=== PATIENT | female | born 1940 | race Caucasian/White ===

== ENCOUNTER 2016-11-05 17:55 | Emergency (ER) | payer MEDICARE ==
[~2016-11-05] VITALS: Ht 177.8 cm; Wt 109.1 kg
[2016-11-05 17:58] VITALS: BP 183/114; PULSE 86; RESP 20; O2SAT 100
--- NOTE | 2016-11-05 18:15 | ED.REPORT ---
HPI-Trauma Minor / Fall Date of Service November 05, 2016 ED Provider: Flako Dawn MD An 79 year old female with a history of dementia and no current blood thinner use is brought to the ED via EMS due to an unwitnessed fall. The pt fell out of bed and was down for up to 30 minutes. Per pt's , the pt was sleeping normally at 17:00. When he checked on her again thirty minutes later, she had fallen on the floor with her head between the bed and a dresser. When the pt was found, she was responsive and knew who her was. She complained of neck pain at that time, though she denies neck pain in the ED. She is complaining of a headache. The pt's family does not believe that she is currently at baseline. Nursing Notes Stated Complaint: HIT HEAD/FALL Chief Complaint: Multiple Trauma/Fall Nursing Notes Reviewed: Yes Allergies: Coded Allergies: No Known Allergies (Unverified , 11/05/16) General Time Seen by MD: 18:15 Chief Complaint Fall Hx Obtained From: Patient, Spouse, Daughter, EMS Arrived By: Ambulance Onset Occurred: 1 - 4 hours ago Recent Healthcare: No recent hospitalization Risk Factors Head CT Imaging Non Contrast CT Indicated For: >/= 60 yrs AgeNo Vomiting, No WITH Loss of Conciousness RF Statements: Risk factors reviewed Past Medical History Past Medical History dementia [facility] Denies: Hypertension Past Surgical History none reported Smoking History Unknown if Ever Smoker Social History Other Social History: Good social support, Review of Systems Review of Systems Note: ROS limited by pt mental status altered LOC per family Respiratory: Denies: Shortness of breath Musculoskeletal: Denies: Neck pain (initially reported, denied in ED) Neurologic: Reports: Headache Complete sys rev & neg: except as marked. Physical Exam Initial Vital Signs Vital Signs (First) Date Time Temp Pulse Resp B/P Pulse Ox O2 Delivery O2 Flow Rate FiO2 11/05/16 17:58 37.3 86 20 183/114 100 Room Air Initial VS: Reviewed General/Constitutional: Awake, Alert Alertness: Positive: Confused Neck: Atraumatic, Supple, Full range of motion Head / Eyes: Normocephalic, PERRL, EOMI bruising to lower lip ENT: Atraumatic, Airway patent, Mucous membranes moist Respiratory / Chest: Atraumatic, Breath sounds NL, Breath sounds = bilat, No respiratory distress Cardiovascular: Heart rate NL, Regular rhythm 3/6 systolic murmur, upper left systolic border Abdomen: Atraumatic, Soft, Non-tender Back: Atraumatic, Full range of motion spine nontender Upper Extremity / MS: Atraumatic, Full range of motion Lower Extremity / Pelvis / MS: Atraumatic, Full range of motion Skin: Atraumatic, Color NL, No rash, Warm, Dry Neurologic: No motor deficits, No sensory deficits Psychiatric: Affect NL, Mood NL Interpretation & Diagnostics Lab Results Interpretation Result Diagram: 11/05/16202411/05/162024 Test 11/05/16 20:25 11/05/16 22:35 White Blood Count 7.9th/mm3 (3.8-10.1) Red Blood Count 3.29mil/mm3 (3.90-5.20) Hemoglobin 9.9g/dL (12.0-15.6) Hematocrit 30.0% (35.0-46.0) Mean Corpuscular Volume 91.2fL (81-100) Mean Corpuscular Hemoglobin 30.1pg (27.0-35.0) Mean Corpuscular Hemoglobin Concent 33.0% (32.0-37.0) Red Cell Distribution Width 12.3% (12.3-15.4) Platelet Count 203bil/L (150-400) Neutrophils (%) (Auto) 80.9% (40-74) Lymphocytes (%) (Auto) 11.1% (14-46) Monocytes (%) (Auto) 7.1% (4-12) Eosinophils (%) (Auto) 0.3% (0-5) Basophils (%) (Auto) 0.3% (0-3) Sodium Level 146mEq/L (134-144) Potassium Level 3.8mEq/L (3.5-5.2) Chloride Level 109mEq/L (97-108) Carbon Dioxide Level 22mmol/L (18-29) Blood Urea Nitrogen 17mg/dL (8-27) Creatinine 1.32mg/dL (0.57-1.00) Estimat Glomerular Filtration Rate 56mL/min (>59) Glucose Level 120mg/dL (60-99) Calcium Level 8.8mg/dL (8.5-10.1) Total Bilirubin 0.4mg/dL (0.0-1.2) Aspartate Amino Transf (AST/SGOT) 33U/L (0-50) Alanine Aminotransferase (ALT/SGPT) 14U/L (0-32) Alkaline Phosphatase 82U/L (25-165) Total Protein 6.3g/dL (6.4-8.4) Albumin 3.5g/dL (3.4-5.0) Urine Color Yellow (YELLOW) Urine Appearance Clear (CLEAR,HAZY) Urine pH 5.5 (5.0-8.0) Urine Specific Cisco 1.015 (1.003-1.035) Urine Protein 30mg/dL (NEG,TRACE) Urine Glucose (UA) Negativemg/dL (NEGATIVE) Urine Ketones Negativemg/dL (NEGATIVE) Urine Occult Blood Moderate (NEGATIVE) Urine Nitrite Negative (NEGATIVE) Urine Bilirubin Negative (NEGATIVE) Urine Urobilinogen Normalmg/dL (NORMAL) Urine Leukocyte Esterase Negative (NEGATIVE) Urine RBC 0-2/hpf (0-2) Urine WBC 0-5/hpf (0-5) Urine Epithelial Cells Few/hpf (NONE-MOD) Urine Crystals None seen (NONE SEEN) Urine Bacteria None/hpf (NONE-FEW) Urine Hyaline Casts None/lpf (NONE) Urine Granular Casts None seen (NONE SEEN) Urine Waxy Casts None seen (NONE SEEN) Urine Red Blood Cell Casts None seen (NONE SEEN) Urine White Blood Cell Casts None seen (NONE SEEN) Urine Mucus None seen (None Seen) Urine Trichomonas None seen (NONE SEEN) Urine Yeast None (NONE SEEN) Urine Culture Reflexed Not indicated CT Head Interpretation IMPRESSION: 1. No acute intracranial abnormality. 2. Multifocal regions of bifrontal and right temporal parietal low density, consistent with small vessel ischemic disease versus subacute or chronic infarcts. 3. Anterior falcine meningioma. Dictated by: Nirmal Chu M.D. on 11/05/2016 at 18:56 Approved by: Nirmal Chu M.D. on 11/05/2016 at 18:59 Interpretation / Wet Read by: Interpret - Radiologist CT C-Spine Interpretation IMPRESSION: No fracture. Dictated by: Nirmal Chu M.D. on 11/05/2016 at 18:59 Approved by: Nirmal Chu M.D. on 11/05/2016 at 19:00 Interpretation / Wet Read by: Interpret - Radiologist Re-Eval/Medical Decision Source of Hx: [place] Barrel Ribs Re-Evaluation/Progress #1: Time of Eval: 19:52 Patient Status: Condition improved Re-Evaluation/Progress Note: Pt rechecked with family present. Additional history is obtained. Re-Evaluation/Progress #2: Time of Eval: 23:50 Patient Status: Condition improved Re-Evaluation/Progress Note: Pt rechecked, who is sleeping but arousable. The diagnosis and plan for discharge are discussed. The pt understands and agrees with the plan. All questions are addressed at this time. Counseled Regarding: Diagnosis, Lab results, Need for follow-up, When/why to return to ED Discharge & Departure Impression: Primary Impression: Fall from ground level Disposition: Home Discharge Condition All VS Reviewed: Yes Condition: Stable Additional Instructions: Emergency Department evaluation included interview, examination labs CT brain and cervical spine. No acute injury is found. Evaluation for infection or other cause for the fall was reassuring. Continue previous home care. Follow up with primary care in about 1 week for recheck. Return to emergency department for fever or shortness of breath or chest pain. Referrals: Magdalena Macedo MD Attestation Portions of this note were transcribed by José Randle. I, Dr. Dawn personally performed the history, physical exam and medical decision-making; I reviewed and confirmed the accuracy of the information in the transcribed note. Signed by: Joseluis Kumar, 11/05/16 and [id number]. copies to: Magdalena Macedo MD, Donald L MD November 05, 2016 18:15 JOSÉ RANDLE November 05, 2016 18:24
--- NOTE | 2016-11-05 19:00 | DRSVH ---
PROCEDURE: CT BRAIN WITHOUT CONTRAST ([id number]) INDICATIONS: fall head injury TECHNIQUE: Noncontrast 4.5 mm thick angled axial sections acquired from the foramen magnum to the vertex, with c oronal reformats. COMPARISON: None. FINDINGS: Image quality: Degraded by motion artifact CSF spaces: Basal cisterns are patent. No extra-axial fluid collections. The ventricles are symmet celestina in size and shape. Brain: No intracranial bleeds. There is a 13 mm diameter calcific focus along the anterior fault. La rge regions of bifrontal and right temporal parietal low density are present within the cortex, subco rtical, and periventricular white matter. There is cerebral volume loss for age, with resultant ventr icular and sulcal prominence. There are periventricular and deep white matter chronic small vessel i schemic changes. There is intracranial internal carotid artery atherosclerosis. Skull and face: Calvarium and visualized facial bones appear intact, without suspicious lesions. Sinuses: Visualized sinuses and mastoids are clear. IMPRESSION: 1. No acute intracranial abnormality. 2. Multifocal regions of bifrontal and right temporal parietal low density, consistent with small ves kumar ischemic disease versus subacute or chronic infarcts. 3. Anterior falcine meningioma. Dictated by: Nirmal Chu M.D. on 11/05/2016 at 18:56 Approved by: Nirmal Chu M.D. on 11/05/2016 at 18:59
--- NOTE | 2016-11-05 19:02 | DRSVH ---
PROCEDURE: CT CERVICAL SPINE WITHOUT CONTRAST ([id number]) INDICATIONS: fall head injury TECHNIQUE: Noncontrast 3 mm thick sections acquired from the skull base to the T4 level. Sagittal and coronal r eformats were then constructed. For radiation dose reduction, the following was used: automated exp osure control, adjustment of mA and/or kV according to patient size. COMPARISON: None. FINDINGS: Image quality: Excellent. Bones: No fractures or dislocations. Visualized superior ribs are intact. Soft tissues: Prevertebral soft tissues are normal in thickness. No paravertebral hematomas. No ap ical pneumothoraces. IMPRESSION: No fracture. Dictated by: Nirmal Chu M.D. on 11/05/2016 at 18:59 Approved by: Nirmal Chu M.D. on 11/05/2016 at 19:00
[2016-11-05 20:10] VITALS: BP 149/56; PULSE 78; RESP 20; O2SAT 98
[2016-11-05 20:35] LABS: BASOPHILS % (AUTO) 0.3 % (0-3); EOSINOPHILS % (AUTO) 0.3 % (0-5); MONOCYTES % (AUTO) 7.1 % (4-12); Mean Corpuscular Hemoglobin 30.1 pg (27.0-35.0); Mean Corpuscular Volume 91.2 fL (81-100); NEUTROPHILS % (AUTO) 80.9 % (40-74); Platelet Count 203 bil/L (150-400)
[2016-11-05 22:24] VITALS: BP 205/56; PULSE 98; RESP 20; O2SAT 98
[2016-11-05 23:41] LABS: APPEARANCE,URINE CLEAR (CLEAR,HAZY); COLOR,URINE YELLOW (YELLOW); OCCULT BLOOD,URINE MODERATE (NEGATIVE); PH,URINE 5.5 (5.0-8.0); UROBILINOGEN,URINE NORMAL (NORMAL)
[2016-11-06 00:14] VITALS: BP 143/41; PULSE 74; O2SAT 98
[2016-11-07] MEDS ORDERED: HYDR25TA4 PO (16:35)
[2016-11-07] MEDS ORDERED: METO25TA99 PO (16:35)
[2016-11-07] MEDS ORDERED: ATOR80TA PO (16:35)
[2016-11-07] MEDS ORDERED: OLME40TA3 PO (16:35)
[2016-11-07] MEDS ORDERED: DIPH25CA6 PO (16:35)
[2016-11-07] MEDS ORDERED: FLUT16SP NS (16:35)
[2016-11-07] MEDS ORDERED: FLUO40CA PO (16:35)
[2016-11-07] MEDS ORDERED: LEVO100T6 PO (16:35)
== END 2016-11-06 00:15 | disposition home or self-care (01) ==
LOC: SED 17:55
DX: R51 Headache (principal); M54.2 Cervicalgia; W06.XXXA Fall from bed, initial encounter; Y93.84 Activity, sleeping; Y92.013 Bedroom of single-family (private) house as the place of occurrence of the external cause; Y99.8 Other external cause status

== ENCOUNTER 2016-11-06 14:20 | Inpatient (IN) | payer MEDICARE ==
[~2016-11-06] VITALS: Ht 172.7 cm; Wt 106.3 kg
[2016-11-06 14:36] VITALS: BP 149/101; PULSE 66; RESP 21; O2SAT 98
--- NOTE | 2016-11-06 15:05 | ED.REPORT ---
HPI-Altered Mental Status Date of Service November 06, 2016 ED Provider: Dr. Peñaloza Patient is a 76 y/o female with a history of dementia, hypertension, and coronary artery disease, who was brought to the emergency department by EMS for altered mental state. Per her family, the patient fell out of the bed yesterday and was pinned between her bed and night stand. She was seen in the emergency department yesterday after the fall, had a negative head and neck CT, and was discharged home. Today her mental status has drastically declined. She is typically very verbal and talkative but has been unable to answer questions appropriately or recognize the people around her. She denies chest pain, abdominal pain, extremity pain or shortness of breath. Family denies history of stroke. Nursing Notes Stated Complaint: ALTERED MENTAL STATUS Chief Complaint: Neuro Symptoms/ Deficits Nursing Notes Reviewed: Yes Allergies: Coded Allergies: Penicillins (Verified Allergy, Severe, Anaphylaxis, 11/06/16) General Time Seen by MD: 15:04 Chief Complaint Other (Altered mental state) Hx Obtained From: Patient (limited), Daughter, Other family... Arrived By: Ambulance Sudden in Onset?: Yes Onset Occurred: 1 - 4 hours ago Symptom Duration: Since onset Progression since Onset: Constant Recent Healthcare: No recent hospitalization, Recent doctor visit Past Medical History Past Medical History Dementia Coronary artery disease Reports: Hypertension Reports: Depression Past Surgical History none reported Family History Noncontributory Smoking History Unknown if Ever Smoker Social History Alcohol Use: Denies alcohol use Other Social History: Good social support, , Local resident Ambulatory Status Independent Review of Systems Review of Systems Note: History is limited due to patients altered mental state Unable to Obtain ROS Patient condition (limited) Respiratory: Denies: Shortness of breath Cardiovascular: Denies: Chest pain GI: Denies: Abdominal pain Neurologic: Reports: Confusion Psychiatric: Reports: Change mental status Musculoskeletal: Denies: Extremity pain Physical Exam Initial Vital Signs Vital Signs (First) Date Time Temp Pulse Resp B/P Pulse Ox O2 Delivery O2 Flow Rate FiO2 11/06/16 14:36 36.4 66 21 149/101 98 Room Air Initial VS: Reviewed, Vital signs abnormal ENT: Mucous membranes moist, Conjunctiva normal, No scleral icterus Abdomen / GI: Soft, Non-tender, No guarding, No rebound, No distention Extremities: Vascular intact, Neuro intact Skin: Warm, Dry General/Constitutional: Awake, Not toxic appearing Alertness: Positive: Confused Head / Eyes: Atraumatic, Normocephalic, PERRL, EOMI Neck: Atraumatic, Supple, No swelling, Non-tender Respiratory / Chest: Atraumatic, Breath sounds NL, Breath sounds = bilat, No respiratory distress, No rales, No rhonchi, No wheezing, No retractions Cardiovascular: Heart rate NL, Regular rhythm, Heart sounds NL, No gallop, No murmurs, No rubs Neurologic: Speech NL Mental Status: Positive: Confused GCS score of 13 due to eye opening Was able to answer questions with confusion. Lower Extremity / Pelvis / MS: Full range of motion, Neurologic intact, Vascular intact Left Leg / Calf: Positive: Swelling present... (Mild), Tenderness present... ( Mild) Interpretation & Diagnostics Lab Results Interpretation Result Diagram: 11/06/16 1538 11/06/16 1538 Test 11/06/16 15:38 White Blood Count 5.4th/mm3 (3.8-10.1) Red Blood Count 3.37mil/mm3 (3.90-5.20) Hemoglobin 10.1g/dL (12.0-15.6) Hematocrit 31.0% (35.0-46.0) Mean Corpuscular Volume 92.0fL (81-100) Mean Corpuscular Hemoglobin 30.0pg (27.0-35.0) Mean Corpuscular Hemoglobin Concent 32.6% (32.0-37.0) Red Cell Distribution Width 12.7% (12.3-15.4) Platelet Count 202bil/L (150-400) Neutrophils (%) (Auto) 49.0% (40-74) Lymphocytes (%) (Auto) 36.8% (14-46) Monocytes (%) (Auto) 10.5% (4-12) Eosinophils (%) (Auto) 3.1% (0-5) Basophils (%) (Auto) 0.6% (0-3) Prothrombin Time 10.6sec (8.1-12.5) Prothromb Time International Ratio 0.99ratio Sodium Level 141mEq/L (134-144) Potassium Level 3.8mEq/L (3.5-5.2) Chloride Level 106mEq/L (97-108) Carbon Dioxide Level 23mmol/L (18-29) Blood Urea Nitrogen 15mg/dL (8-27) Creatinine 1.37mg/dL (0.57-1.00) Estimat Glomerular Filtration Rate 54mL/min (>59) Glucose Level 102mg/dL (60-99) Lactic Acid Level 0.9mmol/L (0.4-2.0) Calcium Level 9.1mg/dL (8.5-10.1) Magnesium Level 1.9mg/dL (1.6-2.6) Total Bilirubin 0.6mg/dL (0.0-1.2) Aspartate Amino Transf (AST/SGOT) 47U/L (0-50) Alanine Aminotransferase (ALT/SGPT) 16U/L (0-32) Alkaline Phosphatase 80U/L (25-165) Ammonia 40ug/dL (18-53) Total Protein 6.3g/dL (6.4-8.4) Albumin 3.5g/dL (3.4-5.0) Triglycerides Level 91mg/dL (0-149) Cholesterol Level 151mg/dL (100-199) LDL Cholesterol, Calculated 78.800mg/dL (0-99) VLDL Cholesterol 18.200mg/dL HDL Cholesterol 54mg/dL (>39) Cholesterol/HDL Ratio 2.80 (0.0-4.4) Thyroid Stimulating Hormone (TSH) 3.850uIU/mL (0.450-4.500) CT Head Interpretation IMPRESSION: Diffuse white matter edema unchanged since the previous day CT scan. Dictated by: Michael Gonzalez M.D. on 11/06/2016 at 14:52 Study: Head CT no contrast Interpretation / Wet Read by: Interpret - Radiologist US Focused Lower Ext Venous US VENOUS LEG DUPLEX UNILATERAL, LEFT IMPRESSION: No evidence of deep venous thrombosis. Dictated by: Dedrick Handy M.D. on 11/06/2016 at 17:40 Exam Performed by: Radiologist Re-Eval/Medical Decision Med Decision/Clinical Course The patient presents altered, she is not clearing, she has been this way since she was found on the ground yesterday. Her CT does have some abnormalities one of which is subacute stroke. Her symptoms may be related to concussion or this abnormality. Given she is not clearing so she should be admitted for further evaluation such as an MRI. On exam she is also found to have a right lower extremity cellulitis however see does not have any signs of sepsis therefore do not think this is concerning to her mental status. Source of Hx: Old records Re-Evaluation/Progress : Time of Eval: 17:56 Re-Evaluation/Progress Note: Discussed patients condition with the family. Informed them of the need to admit. They understand and agree with with the plan. All questions answered at this time. Consultation : Referral / Consult Name: Evelia Goldman MD Consulted With: Hospitalist Call Returned at: 17:47 Branch Service Leader: Will see patient, Agrees with eval, Accepts admit Note: Discussed patients condition. Agrees to admit. Counseled Regarding: Diagnosis, Lab results, Need for admission Patient Discharge & Departure Impression: Primary Impression: Altered mental status Altered mental status type: unspecified Qualified Code: R41.82 - Altered mental status, unspecified Additional Impression: Cellulitis Site of cellulitis: unspecified site Qualified Code: L03.90 - Cellulitis, unspecified Disposition: ADMITTED TO HOSPITAL Discharge Condition All VS Reviewed: Yes Condition: Stable Referrals: Magdalena Macedo MD (PCP) Scribe Attestation Portions of this note were transcribed by Glen Acuna and Marcy Gomez. I, Dr. Peñaloza personally performed the history, physical exam and medical decision- making; I reviewed and confirmed the accuracy of the information in the transcribed note. Signed by: Glen Gomez, Scribes, 11/06/16 - 2004. copies to: Magdalena Macedo MD, Jena M MD November 06, 2016 15:05 Glen Acuna November 06, 2016 15:15 Marcy Gomez November 06, 2016 21:18
--- NOTE | 2016-11-06 15:09 | DRSVH ---
PROCEDURE: CT BRAIN WITHOUT CONTRAST ([id number]) INDICATIONS: confusion, recent fall TECHNIQUE: Noncontrast 4.5 mm thick angled axial sections acquired from the foramen magnum to the vertex, with c oronal reformats. COMPARISON: [facility], CT, CT BRAIN WO CON, 11/05/2016, 18:26. FINDINGS: Image quality: Excellent. CSF spaces: Basal cisterns are patent. No extra-axial fluid collections. The ventricles are symmet celestina in size and shape. Brain: No intracranial bleeds. There is fairly diffuse cerebral white matter edema bilaterally witho ut shift of midline. No evidence for any herniation is seen.. There is cerebral volume loss for age, with resultant ventricular and sulcal prominence. There are periventricular and deep white matter c hronic small vessel ischemic changes. There is intracranial internal carotid artery atherosclerosis. Skull and face: Calvarium and visualized facial bones appear intact, without suspicious lesions. Sinuses: Visualized sinuses and mastoids are clear. IMPRESSION: Diffuse white matter edema unchanged since the previous day CT scan. Dictated by: Michael Gonzalez M.D. on 11/06/2016 at 14:52 Approved by: Michael Gonzalez M.D. on 11/06/2016 at 15:08
[2016-11-06] MEDS ORDERED: 0.9% Sodium Chloride 500 ML IV ONE (15:15)
[2016-11-06 15:49] LABS: BASOPHILS % (AUTO) 0.6 % (0-3); EOSINOPHILS % (AUTO) 3.1 % (0-5); MONOCYTES % (AUTO) 10.5 % (4-12); Platelet Count 202 bil/L (150-400)
[2016-11-06 16:03] LABS: INR 0.99 ratio
[2016-11-06 16:11] LABS: Magnesium 1.9 mg/dL (1.6-2.6)
[2016-11-06 16:37] VITALS: BP 159/57; PULSE 78; RESP 17; O2SAT 98
[2016-11-06] MEDS ORDERED: CeFAZolin Inj 3 GM in Dextrose 5% Minibag Plus 50 ML IV ONE (17:30)
--- NOTE | 2016-11-06 17:42 | DRSVH ---
PROCEDURE: US VEINOUS LEG DUPLEX UNILATERAL, LEFT INDICATIONS: swelling LEFT LEG TECHNIQUE: Real-time imaging, as well as color and pulse Doppler interrogation, were performed of the lower extr emity deep veins from the inguinal ligament to the popliteal fossa. COMPARISON: None. FINDINGS: The deep veins are normally compressible, and free of intraluminal thrombus. Color and pu lse Doppler demonstrate normal phasic intraluminal flow. There is normal augmentation response to di stal compression maneuver. IMPRESSION: No evidence of deep venous thrombosis. Dictated by: Dedrick Handy M.D. on 11/06/2016 at 17:40 Approved by: Dedrick Handy M.D. on 11/06/2016 at 17:41
[2016-11-06 19:07] VITALS: PULSE 64
--- NOTE | 2016-11-06 19:15 | PCM.HPMED ---
Subjective Date of Service November 06, 2016 Primary Provider: Admitting Physician: Primary Care Physician: Magdalena Macedo MD Attending Physician: Chief Complaint: Somnolence after fall History of Present Illness: 76-year-old female with mild dementia, hypertension, hyperthyroidism, remote hx of KBG01qan ago, community dwelling functional lady initially presented yesterday after being found down by her . Per pt's , the pt was sleeping normally at 17:00. When he checked on her again thirty minutes later, she had fallen on the floor with her head between the bed and a dresser. When the pt was found, she was responsive and knew who her was. She complained of neck pain at that time, estimated last normal was 30min earlier, pt had CTH, cervical spine CT, which didn't show any acute findings. As per record, pt was communicative upon d/c. Since patient left around [place], daughter stayed with the patient, patient had been very somnolent, responding, barely open her eyes. Daughter called and primary doctor, asked to come to ED again. In ED, VS 149/101, 66, 21, afebrile, 98% on RA, repeat CTH unchanged, venous duplex neg. received 500cc bolus During interview, pt already made improvement per family, able to communicate, mildly drowsy and slow to response, denied any pain, BENDER, dizziness, focal weakness, knows she is the hospital but doesn't know the reason, recognized all of the family members. Review of Systems: Pertinent positives as noted in history of present illness. All other systems were reviewed and are negative Allergies Coded Allergies: Penicillins (Verified Allergy, Severe, Anaphylaxis, 11/06/16) Home Medications Unable to recall PMH As described above Surgical History Cholecystectomy Family History No history of CAD Social History Hx Alcohol Use: No Hx Substance Use: No Hx Tobacco Use: No Smoking Status: Unknown if Ever Smoker Additional Information Lives with in private home Exam Vital Signs Vital Sign - Last Date Time Temp Pulse Resp B/P Pulse Ox O2 Delivery O2 Flow Rate FiO2 11/06/16 16:37 36.8 78 17 159/57 98 Room Air Exam NAD, comfortably laying down on the bed no JVD, MMM, no LAD RRR, Gr2 ejection murmur on RUSB CTAB, no w,c S,ND,NT,normoactive BS+ warm, no edema, pulses 2/2 Neuro:speech coherent, fluent, AAOx2, slow response PERRLA, unable to assess ocular movement, symmetric face, no uvulae tongue deviation, able shrug shoulders equally able rotate neck equally on both sides motor 5/5 throughout, sensory intact to dull touch Lab and Diagnostics Result Diagram: 11/06/16 1538 11/06/16 1538 X-Rays, CTs and MRIs PROCEDURE: CT BRAIN WITHOUT CONTRAST ([id number]) INDICATIONS: confusion, recent fall TECHNIQUE: Noncontrast 4.5 mm thick angled axial sections acquired from the foramen magnum to the vertex, with coronal reformats. COMPARISON: [facility], CT, CT BRAIN WO CON, 11/05/2016, 18:26. FINDINGS: Image quality: Excellent. CSF spaces: Basal cisterns are patent. No extra-axial fluid collections. The ventricles are symmetric in size and shape. Brain: No intracranial bleeds. There is fairly diffuse cerebral white matter edema bilaterally without shift of midline. No evidence for any herniation is seen.. There is cerebral volume loss for age, with resultant ventricular and sulcal prominence. There are periventricular and deep white matter chronic small vessel ischemic changes. There is intracranial internal carotid artery atherosclerosis. Skull and face: Calvarium and visualized facial bones appear intact, without suspicious lesions. Sinuses: Visualized sinuses and mastoids are clear. IMPRESSION: Diffuse white matter edema unchanged since the previous day CT scan. Dictated by: Michael Gonzalez M.D. on 11/06/2016 at 14:52 Approved by: Michael Gonzalez M.D. on 11/06/2016 at 15:08 Assessment & Plan acute, active unwitnessed fall, POA, 2days, possible cardia episode-valvular dz given murmur, ventricular arrhythmias vs transient concussion after fall, possible TIA -MRI stroke protocol -TTE which was already scheduled in the clinic -will verify further medical hx with PCP [phone] tomorrow -EKG, telemetry -PT/OT, s/s eval, dysphagis diet for now, advance as tolerate -gentle hydration 100cc/hr by tomorrow chronic, stable HTN, hold BP meds for now hyperthyroidism, resume home meds mild dementia, functional at baseline, likely to return home dispo:Patient will be admitted with inpatient status with expectation of inpatient therapy for more than 2 midnights diet:mechanical dysphagia dvt ppx:LMWH Full Code Time spent 65 minutes Evelia Goldman MD November 06, 2016 17:49
[2016-11-06 19:27] VITALS: BP 211/71; PULSE 64; RESP 18; O2SAT 97
[2016-11-06 21:33] VITALS: BP 203/76
[2016-11-06] MEDS: 0.9% Sodium Chloride 1,000 ML IV SCH (21:48)
[2016-11-07 00:52] VITALS: BP 160/87; PULSE 74; RESP 18; O2SAT 98
[2016-11-07 03:33] LABS: APPEARANCE,URINE CLEAR (CLEAR,HAZY); COLOR,URINE YELLOW (YELLOW); OCCULT BLOOD,URINE TRACE (NEGATIVE); UROBILINOGEN,URINE NORMAL (NORMAL)
[2016-11-07 05:02] VITALS: BP 162/72; PULSE 72; RESP 18; O2SAT 97
[2016-11-07 07:42] LABS: BASOPHILS % (AUTO) 0.4 % (0-3); EOSINOPHILS % (AUTO) 3.8 % (0-5); MONOCYTES % (AUTO) 10.6 % (4-12); Mean Corpuscular Hemoglobin 29.5 pg (27.0-35.0); NEUTROPHILS % (AUTO) 59.4 % (40-74); Platelet Count 198 bil/L (150-400)
[2016-11-07 08:07] LABS: Magnesium 1.8 mg/dL (1.6-2.6); Phosphorus 3.8 mg/dL (2.5-4.9)
[2016-11-07] MEDS: 0.9% Sodium Chloride 1,000 ML IV SCH ×2 (09:28→15:15)
[2016-11-07 10:09] VITALS: BP 145/78; PULSE 74; RESP 18; O2SAT 99
[2016-11-07 11:06] VITALS: PULSE 79
--- NOTE | 2016-11-07 11:21 | PCM.PNMED ---
Subjective Date of Service November 07, 2016 Subjective pt was AAOX3 overnight, doesn't recall that she was found down prior to hospitalization. pleasant, calm Exam Vital Signs Vital Sign - Last Date Time Temp Pulse Resp B/P Pulse Ox O2 Delivery O2 Flow Rate FiO2 11/07/16 11:06 79 11/07/16 10:09 37.1 18 145/78 99 Room Air Intake and Output 11/06/16 11/06/16 11/07/16 Cumulative From/Thru 15:00 23:00 07:00 11/06/16 14:36 - 11/07/16 06:31 Intake Total 500 ml 767 ml 1267 ml Output Total 300 ml 300 ml Balance 500 ml 467 ml 967 ml Intake Oral 200 ml 200 ml IV Total 500 ml 567 ml 1067 ml Output Urine Total 300 ml 300 ml # Bowel Movements 0 0 Exam NAD, comfortably laying down on the bed no JVD, MMM, no LAD RRR, nl s1, s2 no mrg CTAB, no w,c S,ND,NT,normoactive BS+ warm, no edema, pulses 2/2 Neuro:speech coherent, fluent, AAOx2, PERRLA, EOMI, symmetric face, no uvulae tongue deviation, able shrug shoulders equally able rotate neck equally on both sides motor 5/5 throughout, sensory intact to dull touch IVs and Medications Medications Reviewed: Medications were reviewed in detail Lab and Diagnostics Result Diagram: 11/07/16 0725 11/07/16 0725 X-Rays, CTs and MRIs PROCEDURE: CT BRAIN WITHOUT CONTRAST ([id number]) INDICATIONS: confusion, recent fall TECHNIQUE: Noncontrast 4.5 mm thick angled axial sections acquired from the foramen magnum to the vertex, with coronal reformats. COMPARISON: [facility], CT, CT BRAIN WO CON, 11/05/2016, 18:26. FINDINGS: Image quality: Excellent. CSF spaces: Basal cisterns are patent. No extra-axial fluid collections. The ventricles are symmetric in size and shape. Brain: No intracranial bleeds. There is fairly diffuse cerebral white matter edema bilaterally without shift of midline. No evidence for any herniation is seen.. There is cerebral volume loss for age, with resultant ventricular and sulcal prominence. There are periventricular and deep white matter chronic small vessel ischemic changes. There is intracranial internal carotid artery atherosclerosis. Skull and face: Calvarium and visualized facial bones appear intact, without suspicious lesions. Sinuses: Visualized sinuses and mastoids are clear. IMPRESSION: Diffuse white matter edema unchanged since the previous day CT scan. Dictated by: Michael Gonzalez M.D. on 11/06/2016 at 14:52 Approved by: Michael Gonzalez M.D. on 11/06/2016 at 15:08 Assessment & Plan acute, active acute encephalopathy, unwitnessed fall, POA, 2days, possible cardia episode- valvular dz given murmur, ventricular arrhythmias vs transient concussion after fall, possible TIA. EKG unremarkable. -MS seemed wax and wane, overall improved, this is more suggestive of delirium, remained non focal on neuro exam, -awaits MRI stroke protocol -TTE which was already scheduled in the clinic -will verify further medical hx with PCP [phone] -telemetry -PT/OT, s/s eval, dysphagis diet for now, advance as tolerate -gentle hydration 100cc/hr chronic, stable HTN, hold BP meds for now hyperthyroidism, resume home meds mild dementia, functional at baseline, likely to return home dispo:likely 1-2more days, appreciate PT eval diet:mechanical dysphagia dvt ppx:LMWH Full Code addendum> Collateral information from , pt has hyperparathyroidism, CKD3, mild , HTN. recently seen in 10/15, noticed that pt was mildly forgetful, noticed that she was not compliant to all her recommendation. otherwise, particular concerns. scheduled to have TTE for follow up of . pt was on Levothyroxin, metoprolol, HCTZ, atorvastatin, aspirin, prozac. MRI brain w/mini showed deep WM changes suggestive of PML, no meningeal thickening/enhancement suggestive of meningitis. no Cytoxic changes with edema noticed per the radiology. DWI didn't show signs of acute/subacute stroke. family was informed, consulted ID, recommended acyclovir 10mg/kg renally adjusted q8h. awaiting neurology to respond. Since pt had LMWH today, wait for LP tomorrow. will send cell with diff, DARRYL virus, culture, protein, glc , lactate, cytology, VTE Mechanical Devices: Intermittant Pneumatic CD Time spent 35min Evelia Goldman MD November 07, 2016 11:11
--- NOTE | 2016-11-07 12:02 | DRSVH ---
PROCEDURE: MRA ANGIOGRAM HEAD WITHOUT CONTRAST ([id number]) INDICATIONS: ALTERED MENTAL STATUS TECHNIQUE: Noncontrast axial 3-D [id number] MR angiogram, with 3-dimensional maximum intensity projection (M IP) reformats of the internal carotid arteries and posterior circulation then performed. COMPARISON: [facility], MR, MR BRAIN W&WO CON, 11/07/2016, 11:08. FINDINGS: Image quality: Excellent. Anterior circulation: Intracranial internal carotid arteries demonstrate normal size and intralumina l flow signal. The flow within the paired anterior cerebral arteries is normal and symmetric. The f low within the middle cerebral arteries is normal and symmetric. The anterior communicating artery i s seen. No stenoses, occlusions, or aneurysms. Posterior circulation: Visualized portions of the vertebral arteries demonstrate normal caliber, and join to form a normal appearing basilar artery. The flow within the posterior cerebral arteries is normal and symmetric. No stenoses, occlusions, or aneurysms. IMPRESSION: Normal intracranial MR angiogram. No signs of occlusion, stenosis, or aneurysm. Please also refer to report from contrast-enhanced brain MRI obtained today, which identifies a paraf alcine enhancing mass lesion anteriorly just above the imaging upper margin from this study, during t he brain MRI which includes full brain imaging. Dictated by: Jos Mcgarry M.D. on 11/07/2016 at 11:59 Approved by: Jos Mcgarry M.D. on 11/07/2016 at 12:00
--- NOTE | 2016-11-07 13:09 | DRSVH ---
PROCEDURE: MRI BRAIN WITH AND WITHOUT CONTRAST ([id number]) INDICATIONS: Unwitnessed fall, evaluate for stroke TECHNIQUE: Noncontrast axial T1 spin echo, axial T2 fast spin echo, sagittal and axial FLAIR, coronal T2 fast sp in echo, axial gradient echo, axial diffusion and ADC through the brain. After the administration of contrast, axial and coronal 3D VIBE or T1 spin echo with fat saturation through the brain. COMPARISON: [facility], CT, CT BRAIN WO CON, 11/05/2016, 18:26. [facility], CT, CT BRAIN WO CON, 11/06/2016, 14:40. [facility], MR, MR ANGIO HEAD WO CON, 11/07/2016, 11:08. FINDINGS: Image quality: Moderately degraded by patient motion during image acquisition. CSF Spaces: Basal cisterns are patent. No extra-axial fluid collections. Ventricles are unusually small and the overlying cortical sulci are also reduced in size. This pattern is associated with nicho vated fluid signal within the subcortical and deep white matter, best seen at the frontal lobes bilat erally and the right occipital parietal region, and to a lesser degree at the left occipital parietal region. This is most easily seen on the T2 and FLAIR pulse sequences, but without elevated diffusio n signal that would indicate acute or subacute ischemic injury as the underlying cause. Brain: No midline shift. No intracranial bleeds but there is a enhancing right falcine anterior men ingioma 13 mm in dimension, as was previously identified as a densely calcified structure in this are a on recent 11/05/16 and subsequent 11/06/16 CT scans. No additional abnormal intracranial enhancement. The brainstem appears normal. Diffusion-weighted images demonstrate no acute ischemic insults, but there is prominent abnormal elev ated T2 and diffusion signal abnormalities in the subcortical and deep white matter of each hemispher e as noted above. No chronic ischemic insults. Normal intravascular flow voids are present. Skull and face: Calvarial marrow is normal in signal. Orbits appear normal. Sinuses: Sinuses and mastoids appear clear. IMPRESSION: 1. 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 This manifestation of deep white matter encephalitis is associated with a genera lized mild mass effect effacing the overlying cortical sulci, underlying ventricles, and to a mild de gree the basilar cisterns. Ischemic injury at this time is not found from the diffusion pulse sequen ce. Increased mass effect from progression of PML, however, may result in subsequent ischemic injury . 2. A previously identified (by recent CT scanning) calcified 13 mm right frontal parafalcine meningi edmundo is present, diffusely enhancing, without adjacent vasogenic edema. This produces only mild focal adjacent mass effect. 3. No prior or recent stroke suspected. No abnormal signal is seen within the brainstem. No vascul ar abnormality found. 4. This information was conveyed at time of this dictation to the charge nurse caring for the patien t, who will convey the information to the hospitalist to was not immediately available for discussion . Dictated by: Jos Mcgarry M.D. on 11/07/2016 at 12:02 Approved by: Jos Mcgarry M.D. on 11/07/2016 at 13:07
[2016-11-07] MEDS ORDERED: ACYCLOVIR IV SCH (13:50)
[2016-11-07] MEDS ORDERED: SODIUM CHLORIDE 0.9% IV SCH (13:50)
--- NOTE | 2016-11-07 15:06 | DRSVH ---
[facility] [address] [place] [address] Echocardiogram Report Name: JUAN DAVID AGUIRRE RStudy Date: 11/07/2016 Height: 68 in Hospital Exam Location: [facility] Weight: 234 lb Gender: Female BSA: 2.2 m2 : 1940 Age: 76 yrs BP: 162/72 mmHg Reason For Study: Aortic valve stenosis Performed By: Adis Neil Referring Physician: SHEA CARLSON Interpretation Summary The left ventricle is normal in size.The ejection fraction is estimated to be 65-70%. The right ventricle is grossly normal size. The right ventricular systolic function is normal. There is mild mitral regurgitation. The aortic valve is not well visualized. The aortic valve is mildly calcified. The peak aortic velocity is 3.0 m/sec. The aortic valve mean gradient is 20 mmHg. The calculated aortic valve area is 1.2 cm2. There is mild to moderate aortic stenosis. The IVC is dilated (diameter is greater than 2.1 cm) and it collapses less than 50% with a sniff. This suggests a high right atrial pressure of 15 mm Hg. Procedure: A two-dimensional transthoracic echocardiogram with color flow and Doppler was performed. The study quality was technically adequate. Apical views were limited due to patient sensitivity. The patient was in normal sinus rhythm during the exam. Left Ventricle: The left ventricle is normal in size. Left ventricular wall thickness is mildly increased. Proximal septal thickening is noted. There is no echo evidence for significant left ventricular outflow tract obstruction. There is no thrombus. The ejection fraction is estimated to be 65-70%. There are no obvious focal wall motion abnormalities noted but poor endocardial definition reduces the sensitivity for the detection of such. Spectral Doppler of the mitral valve is reversed, with an E/A wave ratio < 1.0. Right Ventricle: The right ventricle is grossly normal size. The right ventricle appears to be hypertrophied. The right ventricular systolic function is normal. Atria: The left atrium is moderately dilated. Right atrial size is normal. The thickening of interatrial septum suggests lipomatous hypertrophy. Mitral Valve: The mitral valve leaflets appear thickened, but open well. There is moderate mitral annular calcification. The mitral valve leaflets are mildly calcified. No significant mitral valve stenosis. There is mild mitral regurgitation. Aortic Valve: The aortic valve is not well visualized. The aortic valve is mildly calcified. The peak aortic velocity is 3.0 m/sec. The aortic valve mean gradient is 20 mmHg. The calculated aortic valve area is 1.2 cm2. The aortic valve area indexed to the BSA is 0.55 . There is mild to moderate aortic stenosis. No aortic regurgitation is present. Tricuspid Valve: The tricuspid valve is not well visualized, but is grossly normal. There is trace tricuspid regurgitation. Pulmonary artery pressures cannot be estimated because of the lack of a measurable TR jet velocity. Pulmonic Valve: The pulmonic valve is not well seen, but is grossly normal. There is no pulmonic valvular regurgitation. Great Vessels: The aortic root is normal size. The ascending aorta is normal in size. The aortic arch could not be visualized. The IVC is dilated (diameter is greater than 2.1 cm) and it collapses less than 50% with a sniff. This suggests a high right atrial pressure of 15 mm Hg. Pericardium/ Pleura There is no pericardial effusion. There is an anterior echo-free space consistent with a fat pad. There is no pleural effusion. MMode/2D Measurements & Calculations LVIDd: 4.8 cm LA dimension: 3.6 cm RA area LVOT diam LVIDs: 3.1 cm FS: 35.8 % LA A2 area: 22.7 cm : 15.1 2m AoV Opening EPSS: 0.55 cm LA A4 area: 26.3 cm IVSd: 1.0 cm LA length (vol): 5.6 cm Ao root diam LVPWd: 1.1 cm LA vol: 89.8 ml LA vol index Aortic Jxn asc Aorta Diam IVC diam: 2.4 cm LV anderson. diameter/BSA LV sys. diameter/BSA RVD1 (basal) RVD2 (mid) (cm/m^2): 2.2 (cm/m^2): 1.4 : 2.7 cm TAPSE: 2.8 cm Doppler Measurements & Calculations Ao V2 max MV E max nilesh MV E/A: 0.79 PA V2 max : 296.4 cm/sec : 114.0 cm/sec Lat Peak E' Nilesh : 114.2 cm/sec Ao max PG MV A max nilesh PA mean PG : 35.1 mmHg : 144.2 cm/sec E/E' lat: 13.9 Ao mean PG MV P1/2t: 54.7 msec Pulm A Revs Dur PA Accel Time : 20.3 mmHg : 0.14 sec LVOT Max Nilesh MVA(VTI): 1.7 cm2 : 117.9 cm/sec CARL(I,D): 1.2 cm sev ratio MV V2 mean MV P1/2t max nilesh Ao V2 mean LV V1 max PG : 102.0 cm/sec : 217.2 cm/sec MV mean PG MVA(P1/2t): 4.0 cm2 Ao V2 VTI: 69.9 cm LV V1 VTI CARL(V,D): 1.2 cm2 : 29.1 cm MV V2 VTI: 49.8 cm MV dec time : 0.18 sec PA V2 mean CARL indexed to BSA : 83.7 cm/sec (cm^2/m^2): 0.55 PA pr(Accel) : 18.3 mmHg Reading Physician:GE
[2016-11-07] MEDS: ACYCLOVIR IV SCH ×2 (16:04→23:45)
[2016-11-07] MEDS: SODIUM CHLORIDE 0.9% IV SCH ×2 (16:04→23:45)
[2016-11-07] MEDS ORDERED: OLME40TA3 PO (16:35)
[2016-11-07] MEDS ORDERED: ATOR80TA PO (16:35)
[2016-11-07] MEDS ORDERED: FLUT16SP NS (16:35)
[2016-11-07] MEDS ORDERED: METO25TA99 PO (16:35)
[2016-11-07] MEDS ORDERED: LEVO100T6 PO (16:35)
[2016-11-07] MEDS ORDERED: HYDR25TA4 PO (16:35)
[2016-11-07] MEDS ORDERED: DIPH25CA6 PO (16:35)
[2016-11-07] MEDS ORDERED: FLUO40CA PO (16:35)
[2016-11-07 17:25] VITALS: BP 156/66; PULSE 77; RESP 20; O2SAT 95
[2016-11-07] MEDS ORDERED: Fluticasone 0.05% 15 Spray/2 Gm 16 Gm Nasal Spray NASAL PRN (18:05)
[2016-11-07 22:56] VITALS: BP 183/76; PULSE 70; RESP 16; O2SAT 98
[2016-11-08] VITALS (10 sets, daily range): BP systolic 154–202; BP diastolic 67–77; PULSE 66–85; RESP 16–21; O2SAT 93–98
[2016-11-08] MEDS: 0.9% Sodium Chloride 1,000 ML IV SCH (03:35)
[2016-11-08 07:04] LABS: BASOPHILS % (AUTO) 0.2 % (0-3); EOSINOPHILS % (AUTO) 4.3 % (0-5); MONOCYTES % (AUTO) 10.1 % (4-12); Mean Corpuscular Hemoglobin 29.7 pg (27.0-35.0); Mean Corpuscular Volume 92.7 fL (81-100); NEUTROPHILS % (AUTO) 53.7 % (40-74); Platelet Count 206 bil/L (150-400)
[2016-11-08 07:31] LABS: Magnesium 1.7 mg/dL (1.6-2.6); Phosphorus 3.8 mg/dL (2.5-4.9)
[2016-11-08] MEDS ORDERED: MeTOProlol XL 25 mg ER24 Tablet PO SCH (08:30)
--- NOTE | 2016-11-08 11:16 | PCM.PNMED ---
Subjective Date of Service November 08, 2016 Subjective pt remained confused, thinks she is the train, answered questions but not appropriately, recognized daugther, no slurred speech, alert. oriented only to herself. moving four extremities. tolerated acylovir, denied neck pain, BENDER, dizziness, SOB Exam Vital Signs Vital Sign - Last Date Time Temp Pulse Resp B/P Pulse Ox O2 Delivery O2 Flow Rate FiO2 11/08/16 08:50 36.5 79 18 184/70 96 Room Air Intake and Output 11/07/16 11/07/16 11/08/16 Cumulative From/Thru 14:59 22:59 06:59 11/06/16 14:36 - 11/08/16 06:23 Intake Total 563 ml 736 ml 1276 ml 3842 ml Output Total 400 ml 700 ml Balance 563 ml 336 ml 1276 ml 3142 ml Intake Oral 736 ml 936 ml IV Total 563 ml 1276 ml 2906 ml Output Urine Total 400 ml 700 ml # Bowel Movements 0 0 Exam NAD, comfortably laying down on the bed no JVD, MMM, no LAD RRR, nl s1, s2 no mrg CTAB, no w,c S,ND,NT,normoactive BS+ warm, no edema, pulses 2/2 Neuro:speech coherent, fluent, AAOx1, CN2-12grossly intact no meningismus IVs and Medications Medications Reviewed: Medications were reviewed in detail Lab and Diagnostics Result Diagram: 11/08/16 0640 11/08/16 0640 X-Rays, CTs and MRIs PROCEDURE: CT BRAIN WITHOUT CONTRAST ([id number]) INDICATIONS: confusion, recent fall TECHNIQUE: Noncontrast 4.5 mm thick angled axial sections acquired from the foramen magnum to the vertex, with coronal reformats. COMPARISON: [facility], CT, CT BRAIN WO CON, 11/05/2016, 18:26. FINDINGS: Image quality: Excellent. CSF spaces: Basal cisterns are patent. No extra-axial fluid collections. The ventricles are symmetric in size and shape. Brain: No intracranial bleeds. There is fairly diffuse cerebral white matter edema bilaterally without shift of midline. No evidence for any herniation is seen.. There is cerebral volume loss for age, with resultant ventricular and sulcal prominence. There are periventricular and deep white matter chronic small vessel ischemic changes. There is intracranial internal carotid artery atherosclerosis. Skull and face: Calvarium and visualized facial bones appear intact, without suspicious lesions. Sinuses: Visualized sinuses and mastoids are clear. IMPRESSION: Diffuse white matter edema unchanged since the previous day CT scan. Dictated by: Michael Gonzalez M.D. on 11/06/2016 at 14:52 Approved by: Michael Gonzalez M.D. on 11/06/2016 at 15:08 Assessment & Plan acute, active acute encephalopathy, POA, probable ?seizure with postictal given unwitnessed episode, likely due to newly found WM lesions based on MRI of brain, also showed previously known frontal meningioma ddx: primary/metatstatic brain tumor infection, PML-although very unlikely given HIV neg, no episode on telemetry observed, TTE showed mild/moderate . -MS seemed wax and wane, no focal deficit noted. Given collateral info from PCP , MRI findings, this more suggestive of chronic progressive dz, -appreciate neurology, ID input, continue acyclovir for now, consider prophylatic AED. -LP today with cell diff, DARRYL virus, culture, protein, glc, lactate, cytology, encephalitis panel including herpes PCR -telemetry -PT/OT, advance diet as tolerate -gentle hydration 100cc/hr, stopped today chronic, stable HTN, resume metoprolol SR hyperthyroidism, resume home meds CKD3, stable hyperparathyroidism, calcium level stable, mild , repeat TTE showed not significant chg dispo:likely 1-2more days if this turns out to be more chronic process, appreciate PT eval, home with HH diet:soft dvt ppx:LMWH Full Code, verified with patient, daughter. VTE Mechanical Devices: Intermittant Pneumatic CD Time spent 35min Evelia Goldman MD November 08, 2016 11:16 , lactate, cytology, VTE Mechanical Devices: Intermittant Pneumatic CD Time spent 35min Evelia Goldman MD November 08, 2016 11:16
[2016-11-08] MEDS: SODIUM CHLORIDE 0.9% IV SCH ×2 (12:16→20:44)
[2016-11-08] MEDS: ACYCLOVIR IV SCH ×2 (12:16→20:44)
[2016-11-08 12:21] LABS: APPEARANCE,CSF CLEAR (CLEAR); COLOR,CSF COLORLESS (COLORLESS); WHITE BLOOD CELL,CSF 3 /mm3 (0-5)
--- NOTE | 2016-11-08 14:12 | CONS ---
[address] [address] CONSULTATION REPORT PATIENT: JUAN DAVID AGUIRRE : 1940 MR#: [id number] ADMIT: 11/06/2016 JOB ID: [id number] DATE OF SERVICE: 11/08/2016 NEUROLOGY CONSULTATION: REQUESTING PROVIDER: Dr. Goldman. CHIEF COMPLAINT: Change in mental status. HISTORY OF PRESENTING ILLNESS: The patient is a pleasant 76-year-old right-handed woman with multiple medical problems, who was noted to have a change in mental status and was brought to the emergency department. Her daughter, Margarita, is at the bedside and provides the history. The patient reportedly fell out of her bed and was pinned between her bed and the night stand. Her daughter reports no history of multiple sclerosis or any autoimmune disorders or neoplasms or any history of immunosuppressive agent exposure. There is a history of dementia, hypertension and coronary artery disease. Her daughter notes an acute mental status change. She denied any neck pain, fevers, chills, recent illnesses or any symptoms suggestive a recent illnesses such as fevers, chills, nausea, vomiting or fatigue. An initial CT of her head was performed, demonstrating diffuse white matter changes and a venous duplex was performed, demonstrating no evidence of deep venous thrombosis. A brain MRI was performed, which I reviewed, and contacted Dr. Chu, and reviewed it with him as well. This demonstrated extensive subcortical white matter and deep white matter, elevated T2 and FLAIR signal abnormalities. Rule out progressive multifocal leukoencephalopathy. Rule out deep white matter encephalitis as there is generalized mild mass effect effacing the overlying cortical sulci, underlying ventricles, and a mild degree the basal cisterns. No ischemic injury was noted. There was also noted to be a calcified 13 mm right frontal parafalcine meningioma diffusely enhancing without adjacent vasogenic edema producing only mild focal adjacent mass effect. No prior or recent stroke. No abnormal signal seen within the brainstem. No vascular abnormality found. An angiogram was normal with no signs of occlusion, stenosis or aneurysm. An echocardiogram was performed demonstrating that the left ventricle was normal in size. The ejection fraction was estimated to be 65%-70%. The right ventricle was grossly normal size. The right ventricular systolic function is normal. Mild mitral regurgitation. Aortic valve is not well visualized. The aortic valve is mildly calcified. The peak aortic velocity is 3.0 m/sec. The aortic valve mean gradient is 20 mmHg. The calculated aortic valve area is 1.2 cm2. There is [id number] aortic stenosis. The inferior vena cava is dilated. The diameter is greater than 2.1 cm and it collapses less than 50% with a sniff. This suggests a high right atrial pressure of 15 mmHg. PAST MEDICAL HISTORY: Also remarkable for depression. PAST SURGICAL HISTORY: None. FAMILY HISTORY: No neurologic disorders. SOCIAL HISTORY: Lives with her . No tobacco, alcohol or drugs. REVIEW OF SYSTEMS: A complete review of systems was performed supplemented by her daughter, Margarita, which was unremarkable except for above-noted. LABORATORY STUDIES: WBC of 5.4, hemoglobin 10.1, hematocrit 31.0 and platelets of 202. Chemistries: Sodium 141, potassium 3.8, chloride was 106, bicarbonate 23. BUN was 15, creatinine 1.37, glucose 102. Total protein 6.3. Urinalysis: Trace occult blood, few epithelial cells, few bacteria. PHYSICAL EXAMINATION: Temperature 36.6, pulse of 73, respiratory rate of 21, blood pressure 175/77. Pulse oximetry 96% on room air. General: She is a well-developed, well-nourished woman, appearing mildly anxious, seated upright in bed. Her daughter is at the bedside. Head: Normocephalic, atraumatic. Neck: Supple. No carotid bruits were auscultated. Negative Kernig. Negative Brudzinski. Chest clear to auscultation. Heart: Regular rate and rhythm. Abdomen: Soft, nondistended, nontender. Extremities: No cyanosis, clubbing or edema. NEUROLOGIC EXAMINATION: Mental status: She is awake, alert, and oriented x2. There is a mild degree of expressive aphasia with trace receptive aphasia. Mood appeared euthymic. Cranial nerves: Pupils equal, round and reactive to light. Extraocular movements were smooth and conjugate with no evidence of nystagmus. Face appeared symmetrical. Facial sensation was intact to light touch and temperature. Auditory sensation was intact to finger rub. Palatal elevation was symmetrical. Tongue was midline. Sternocleidomastoid and trapezii are 5/5 bilaterally. There was a mild degree of postural tremor, approximately 4-6 hertz in her bilateral distal upper extremities. However, she was able to perform finger to nose without evidence of dysmetria, although it was slow and deliberate bilaterally. Motor: Normal tone and bulk throughout. Sensation: Intact to light touch and temperature. Deep tendon reflexes symmetrical. Plantars were equivocal bilaterally. Gait was deferred. Although there was no edema in the legs, there was trace blanching bilaterally. IMPRESSION: Sudden onset of change in mental status with abnormal magnetic resonance imaging study of the brain. Rule out herpes simplex virus encephalitis/other potential of viral encephalitides vs. a MEDICAL RECORDS COORDINATOR inflammatory process such as a MEDICAL RECORDS COORDINATOR vasculitis/ angitis. Given her history, progressive multifocal leukoencephalopathy is an unlikely etiology. RECOMMENDATION: 1. Continue acyclovir. 2. Obtain lumbar puncture. 3. Appreciate input of Infectious Disease, Dr. Ottoniel Young. 4. If there is a concern for the possibility of progressive multifocal leukoencephalopathy or MEDICAL RECORDS COORDINATOR vasculitis/angitis and encephalitis has been excluded as a potential etiology or the patient does not appear to be responding to antimicrobial therapy, I recommend transfer of the patient to a tertiary center with inpatient Neurosurgery for a brain biopsy. That is either [facility] or [facility]. Thank you, again, Dr. Goldman, for allowing me to participate in the care of your patient. Please feel free to contact me with any questions or concerns. JOSEPHINE
--- NOTE | 2016-11-08 15:04 | DRSVH ---
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 Discussion was held with the daughter and in the patients presence. The indications, alternatives, benefits, risks, and complications were explained to the patient. Written informed consent was obtained and placed in the chart. The patient was plac ed in a prone position on the fluoroscopy table, and a level was chosen for percutaneous access under fluoroscopic guidance. The site was prepped and draped in a sterile fashion. After local anaesthet ic, a spinal needle was then used to enter the intrathecal space, with return of cerebrospinal fluid. After obtaining sufficient fluid, the needle was then withdrawn, and a bandage applied to the punctur e site. FINDINGS: Puncture level: L3-4 Needle: 20 gauge 9 cm long Spinal needle. Opening pressure: Not requested. CSF volume and description: Clear, approximately 24 cc removed Medications: 1% lidocaine for anaesthesia. Complications: None at the time Laboratories: As ordered by referring clinician. IMPRESSION: Successful fluoroscopically guided lumbar puncture. Dictated by: Michael Gonzalez M.D. on 11/08/2016 at 15:01 Approved by: Michael Gonzalez M.D. on 11/08/2016 at 15:02
--- NOTE | 2016-11-08 15:52 | CONS ---
[address] [address] CONSULTATION REPORT PATIENT: JUAN DAVID AGUIRRE : 1940 MR#: [id number] ADMIT: 11/06/2016 JOB ID: [id number] DATE OF SERVICE: 11/08/2016 INFECTIOUS DISEASE CONSULTATION: I thank Dr. Goldman for this timely consult. REASON FOR CONSULTATION: Possible PML. HISTORY OF PRESENT ILLNESS: The patient is a 76-year-old woman who was in her usual state of reasonably compensated health until she was found down by her family on November 06. The patient was apparently completely normal and then went to take a nap and her family found her with her head stuck between the bed and a dresser. When she initially was found, she complained of some neck pain and seemed to be doing reasonably well but rapidly became extremely somnolent and confused. Since that time, almost two days ago, she has remained persistently disoriented and with a wildly altered mental status. The patient's daughters were interviewed in the room with her today. They report that up until the events of November 06, their mother had never had any problems with cognition or thinking. They report that their mom had been apparently in her usual state of compensated health up until that time and had not complained of fevers, chills, headache or anything else in the hours leading up to the events in the late afternoon of November 06. For her part, the patient is currently awake and is fighting to be released from her bed. She had a lumbar puncture a couple hours ago and attempts are being made to keep her in bed but these are only partially successful. When I speak to the patient, she knows who she is but beyond that is totally confused. She thinks she is at home in [place] and has very fanciful ideas about who the people are in the room and what's going on. She is completely disoriented, apparently confabulating at times and at times engaging in a kind of word salad, though at other times, her speech is fluent but just does not make any sense. When asked about fevers, chills, headache, sore throat, confusion, pulmonary, GI or symptoms, she denies all of it, but sometimes will twist the words around and regurgitate the question rather than answer it. At other times, she will direct her daughters to answer the questions for her. In speaking in detail to the daughters, there has been no history of travel. The patient lived in [place] many decades ago but otherwise has not traveled at all in the past two years. She lives at home with her elderly , a dog and a cat. The dog and a cat are in good health. The patient has no unusual hobbies and no unusual exposures to ill persons. She does not apparently drink, smoke or use any illicit substances. PAST MEDICAL HISTORY: 1. Mild dementia by report though the daughter says she is completely fluent and able to carry out tasks around the house like some cleaning and cooking and basic ADLs on her own. 2. Hypertension. 3. Hyperthyroidism. 4. Coronary artery disease. SOCIAL HISTORY: The patient is a nondrinker, nonsmoker. Lives with her in the [facility]. FAMILY HISTORY: Negative for tuberculosis in first, second-degree or any other relative. SOCIAL HISTORY: The patient is a lifelong nonsmoker, nondrinker and non substance abuser. REVIEW OF SYSTEMS: Was done but is of almost no value as the patient is completely disoriented and confused at this point. For what it is worth, she denies any headache, sore throat, trouble swallowing, cough, shortness of breath, chest pain, nausea, vomiting, diarrhea, dysuria, urgency, frequency, bowel or bladder incontinence or weakness. PHYSICAL EXAMINATION: Reveals a woman who is currently being lightly restrained by her two daughters so that she gets her proper time in bed after a lumbar puncture. She was admitted almost exactly 48 hours ago and has been afebrile throughout. Temperature 36.8, pulse 80, respiratory rate 21, blood pressure 173/69. She is saturating well on room air. The patient is a bit agitated but mainly because she wants to get up. She is oriented x1, and as mentioned above, is completely confused giving nonsensical answers to questions at times. Examination of the eyes is limited as she refuses to move her eyes from side to side insisting "I don't want to." There are no conjunctival or scleral abnormalities. The sinuses appear to be nontender. There are no abnormalities of the nose. The patient well with coaxing open her mouth. She has reasonably good dentition. No gingivitis. No thrush and no pharyngitis. The neck is completely supple. There is no cervical adenopathy or JVD. Lungs quite clear anteriorly. Cardiac tones with a harsh 3/6 systolic ejection murmur heard best across the precordium but especially in the aortic area. The abdomen is soft and nontender. No hepatosplenomegaly or suprapubic tenderness is appreciated. There is no ascites. No inguinal or cervical adenopathy is noted. The patient has no evidence of synovitis in her joint. There is no skin rash. The patient's strength is excellent as she is actively fighting a bit to get out of bed, and has great strength in her both upper and lower extremities. She will follow some simple commands but even the simplest of commands can be confused. When I asked her to grab my hands, for example, she grabbed the hands of her daughter who is standing nearby. The patient's deep tendon reflexes seem intact though they are difficult to test with her agitation. LABORATORY STUDIES: Include white blood count of 6000 with normal differential. Hematocrit 30. Platelet count is normal. Creatinine 1.13. LFTs totally normal. Albumin 3.8. Urinalysis without white cells. HIV is negative. Cerebrospinal fluid has been obtained. Three white cells, two red cells found. Glucose normal at 58. Protein high at 144. The [employer] PCR collection has returned all negative. I have called the lab and specifically asked for PCRs on spinal fluid for CMV, EBV and DARRYL virus. No other micro is available. IMAGING: Was carefully reviewed on the screen. It shows a normal MRA but the MRI of the brain is wildly abnormal with extensive white matter, elevated T2 and FLAIR images which would be consisted ordinarily with PML. Ischemic injury is not found. A small meningioma which was known to be present previously is also seen. No stroke is seen. No abnormalities of the brainstem. IMPRESSION: This is a fascinating case of a woman who was apparently going about her business and feeling reasonably well early in the day on November 06 and then was found down in her bedroom. She initially awakened slightly confused and became much more disoriented. CT and MRI show a great deal of white matter changes which would be consistent normally with PML. The problem is, of course, that PML is almost never described in normal host. It is associated with HIV disease as well as states of a profound immunosuppression such as bone marrow transplants and with certain monoclonal antibodies that have been used to treat multiple sclerosis. None of these unusual situations applied to the patient so one possibility, of course, is that she is one of the very few described cases of PML in a relatively normal host or that she has some other process. Other things which could produce this might conceivably be EBV or CMV infection. Other herpes viruses which would not produce this as a typical pattern but it is remotely possible would be VZV and HSV. HIV encephalopathy may the patient look like this but we have no evidence for that as she is HIV negative. Multiple sclerosis could conceivably have this as a pattern and so could reversible leukoencephalopathy though the patient is not currently significantly hypertensive. There is no family history of tuberculosis and no reason to suspect this patient would have it. Tuberculosis can give a very high protein but almost always would be a pleocytosis so I reject that as an idea. Syphilis seems completely unlikely on epidemiologic grounds. The final possibility here is the NMDAR syndrome. This is a recently described but apparently increasingly common syndrome where people have antibodies against a specific receptor which produces a picture of encephalitis or encephalopathy which is non infectious. RECOMMENDATIONS: 1. For now I would keep the patient on acyclovir which covers HSV and VZV as these are really the only treatable causes of a schaffer encephalitis like this. 2. I have added to the tests that have already been ordered PCR studies for DARRYL virus, EBV and CMV for the spinal fluid. 3. The specific antibody test for NMDR syndrome has also been added to the cerebral spinal fluid. 4. If the patient does not improve substantially in 3-5 days, I would repeat a lumbar puncture for the [employer] study. If two PCR studies about five days apart are negative, we can conclude that HSV and VZV for that matter are essentially completely excluded and stop the acyclovir.
[2016-11-09] VITALS (9 sets, daily range): BP systolic 136–206; BP diastolic 67–76; PULSE 61–78; RESP 18–22; O2SAT 97–98
[2016-11-09] MEDS: SODIUM CHLORIDE 0.9% IV SCH ×3 (04:39→21:13)
[2016-11-09] MEDS: ACYCLOVIR IV SCH ×3 (04:39→21:13)
[2016-11-09] MEDS: MeTOProlol XL 25 mg ER24 Tablet PO SCH ×2 (04:43→11:09)
[2016-11-09 07:18] LABS: BASOPHILS % (AUTO) 0.3 % (0-3); EOSINOPHILS % (AUTO) 3.4 % (0-5); MONOCYTES % (AUTO) 10.9 % (4-12); Mean Corpuscular Hemoglobin 29.9 pg (27.0-35.0); Mean Corpuscular Volume 92.2 fL (81-100); NEUTROPHILS % (AUTO) 53.1 % (40-74); Platelet Count 200 bil/L (150-400)
[2016-11-09] MEDS ORDERED: Labetalol 5 mg/mL 4 mL Inj IVPUSH PRN (07:30)
[2016-11-09 07:41] LABS: Magnesium 1.7 mg/dL (1.6-2.6); Phosphorus 3.9 mg/dL (2.5-4.9)
[2016-11-09] MEDS ORDERED: Labetalol 5 mg/mL 4 mL Inj IVPUSH ONE (10:10)
--- NOTE | 2016-11-09 11:27 | PCM.PNMED ---
Subjective Date of Service November 09, 2016 Subjective pt tolerated LP, so far unremarkable result remained confused, alert and oriented only to herself. not agitated, observed on 1:1 BP noted to have 190-200s, home meds resumed Exam Vital Signs Vital Sign - Last Date Time Temp Pulse Resp B/P Pulse Ox O2 Delivery O2 Flow Rate FiO2 11/09/16 08:00 78 11/09/16 07:39 36.8 22 206/73 97 Room Air Intake and Output 11/08/16 11/08/16 11/09/16 Cumulative From/Thru 15:00 23:00 07:00 11/06/16 14:36 - 11/09/16 06:44 Intake Total 200 ml 658 ml 354 ml 5054 ml Output Total 400 ml 1100 ml Balance 200 ml 658 ml -46 ml 3954 ml Intake Oral 200 ml 658 ml 236 ml 2030 ml IV Total 118 ml 3024 ml Output Urine Total 400 ml 1100 ml # Voids 2 2 2 6 # Bowel Movements 0 0 2 2 Exam NAD, comfortably laying down on the bed no JVD, MMM, no LAD RRR, nl s1, s2 no mrg CTAB, no w,c S,ND,NT,normoactive BS+ warm, no edema, pulses 2/2 Neuro:speech coherent, fluent, AAOx1, CN2-12grossly intact no meningismus IVs and Medications Medications Reviewed: Medications were reviewed in detail Lab and Diagnostics Result Diagram: 11/09/16 0700 11/09/16 0700 X-Rays, CTs and MRIs PROCEDURE: CT BRAIN WITHOUT CONTRAST ([id number]) INDICATIONS: confusion, recent fall TECHNIQUE: Noncontrast 4.5 mm thick angled axial sections acquired from the foramen magnum to the vertex, with coronal reformats. COMPARISON: [facility], CT, CT BRAIN WO CON, 11/05/2016, 18:26. FINDINGS: Image quality: Excellent. CSF spaces: Basal cisterns are patent. No extra-axial fluid collections. The ventricles are symmetric in size and shape. Brain: No intracranial bleeds. There is fairly diffuse cerebral white matter edema bilaterally without shift of midline. No evidence for any herniation is seen.. There is cerebral volume loss for age, with resultant ventricular and sulcal prominence. There are periventricular and deep white matter chronic small vessel ischemic changes. There is intracranial internal carotid artery atherosclerosis. Skull and face: Calvarium and visualized facial bones appear intact, without suspicious lesions. Sinuses: Visualized sinuses and mastoids are clear. IMPRESSION: Diffuse white matter edema unchanged since the previous day CT scan. Dictated by: Michael Gonzalez M.D. on 11/06/2016 at 14:52 Approved by: Michael Gonzalez M.D. on 11/06/2016 at 15:08 Assessment & Plan acute, active acute encephalopathy, POA, probable ?seizure with postictal given unwitnessed episode, likely due to newly found WM lesions based on MRI of brain, also showed previously known frontal meningioma ddx: primary/metatstatic brain tumor infection, PML-although very unlikely given HIV neg, no episode on telemetry observed, TTE showed mild/moderate . -MS seemed wax and wane, no focal deficit noted. Given collateral info from PCP , MRI findings, this more suggestive of chronic progressive dz, -appreciate neurology, ID input, continue acyclovir for now, consider prophylatic AED. -LP so for negative for viral, bacterial etiology, plan to continue acylovir and repeat LP in 3-5days, likely next Saturday to repeat CSF viral PCR -telemetry -PT/OT, advance diet as tolerate -initially gentle hydration 100cc/hr, stopped 5/4 HTN, POA, [id number], likely home meds being held, unlikely PRES based on radiologic findings, discussed with resume metoprolol SR, losartan, -labetalol prn added for SBP>180s, hold HR<60 chronic, stable hyperthyroidism, resume home meds CKD3, stable hyperparathyroidism, calcium level stable, mild , repeat TTE showed not significant chg dispo:pending, stay through the weekends, likely3-4more days diet:soft dvt ppx:LMWH Full Code, verified with patient, daughter. VTE Mechanical Devices: Intermittant Pneumatic CD Time spent 35min Evelia Glodman MD November 09, 2016 11:26
--- NOTE | 2016-11-09 12:45 | PROG NOTE ---
[address] [address] PROGRESS NOTE PATIENT: JUAN DAVID AGUIRRE : 1940 MR#: [id number] ADMIT: 11/06/2016 JOB ID: [id number] INFECTIOUS DISEASE FOLLOWUP: DATE: 11/09/2016 REASON FOR FOLLOWUP: Encephalopathy and/or encephalitis. INTERVAL HISTORY: The patient this morning is somewhat lethargic and lying in bed with her eyes closed. She does respond to stimulation and will briefly open her eyes. She answers questions but not very well. She knows who she is, but otherwise really is not oriented in any other way. When pressed to say where she is, she chooses [place]. She will not even supply possible year nor will she even guess who the [place] president is. She states she has a headache but otherwise does not feel badly. She responds to very few of my questions so it is hard to get any history, but it sounds as if she denies shortness of breath, cough or abdominal pain and her main complaint is headache and profound lethargy. This case discussed in detail with the nurse and the patient's son-in-law who is in the room. They report rapid waxing and waning of mental status with the patient being awake and oriented x1 or 2 at times, only minutes or hours later to be found essentially completely unresponsive. One of the nurses observed that this change in mental status seems to correlate with spikes in blood pressure. PHYSICAL EXAMINATION: Reveals a woman lying in bed with her eyes closed who declines to open without a great deal of prodding. She answers questions with one or two word responses and as noted, is only oriented x1. She is afebrile. Temperature 36.8, pulse 70, respiratory rate 22, blood pressure 206/73, saturating 97% on room air. She does not have a stiff neck. Her neck is entirely supple. Eyes without conjunctivitis or scleral icterus. Her extraocular movements are intact. She will not open her mouth to examine the oral cavity. Lungs are clear. Cardiac tones with a 3/6 systolic murmur. Note that an echocardiogram showed [id number] and mild mitral regurg. The abdomen is soft and nontender. The patient has excellent strength in all four extremities and will follow simple commands with respect to moving her arms or legs. No skin rash. LABORATORY DATA: Labs include white count 5900 with normal diff, creatinine 1.14. Urinalysis without white cells. CMV, EBV and DARRYL virus PCR on spinal fluid are all pending. An NMDA receptor antibody is also pending. Cerebrospinal fluid PCR negative; that is using the multiplex panel. IMAGING: The brain MRI was again reviewed and shows bizarre white matter changes consistent with PML. IMPRESSION: This remains an extraordinarily unusual case. This patient was found down on November [address] and MRI scans looked like PML. In so far as we know this patient is not significantly immunosuppressed and this would be an amazing finding if that proves to be the case. Lonnie-De Jesus virus or CMV could produce this pattern. I favor the diagnosis of PRES, and I discussed this with Dr. Stevenson this morning. Apparently, the radiologists feel that the MRI pattern is not completely consistent, but I think given the epidemiology of this situation as well as her high blood pressure that this is the most likely diagnosis. ABEM could also produce such a pattern. The NMDAR syndrome would be unlikely to cause this pattern but we have ordered a diagnostic study for it as this situation is not typical of any diagnosis. RECOMMENDATIONS: 1. Will continue with high-dose IV acyclovir over the weekend. 2. We await the multiple pending PCRs and the NMDR testing. 3. If the patient is not much better on Saturday, I would repeat the lumbar puncture, Saturday, November 12. I would repeat the lumbar puncture and repeat the spinal fluid PCR studies. If these prove to be negative, I think at that point, we can stop the acyclovir. This case discussed in detail with the nursing staff as well as Dr. Stevenson.
[2016-11-09] MEDS ORDERED: hydrALAZINE 20 mg/mL Inj IV ONE (13:50)
[2016-11-09 14:09] LABS: Cryptococcal Antigen CSF Negative (Negative)
[2016-11-09] MEDS: Acetaminophen IV 1,000 MG in IV Premix 1 EACH IV PRN (19:36)
[2016-11-10] VITALS (9 sets, daily range): BP systolic 135–203; BP diastolic 67–82; PULSE 63–71; RESP 20–22; O2SAT 94–99
[2016-11-10] MEDS: hydrALAZINE 20 mg/mL Inj IV PRN (02:46)
[2016-11-10] MEDS: Acetaminophen IV 1,000 MG in IV Premix 1 EACH IV PRN (03:15)
[2016-11-10] MEDS: ACYCLOVIR IV SCH ×4 (04:07→23:33)
[2016-11-10] MEDS: SODIUM CHLORIDE 0.9% IV SCH ×4 (04:07→23:33)
[2016-11-10] MEDS: MeTOProlol XL 25 mg ER24 Tablet PO SCH (09:14)
--- NOTE | 2016-11-10 10:52 | PCM.PNMED ---
Subjective Date of Service November 10, 2016 Subjective pt denied BENDER, still very confused, barely oriented to herself. looked comfortable, denied pain Exam Vital Signs Vital Sign - Last Date Time Temp Pulse Resp B/P Pulse Ox O2 Delivery O2 Flow Rate FiO2 11/10/16 09:57 67 11/10/16 09:00 36.5 21 135/71 94 Room Air Intake and Output 11/09/16 11/09/16 11/10/16 Cumulative From/Thru 15:00 23:00 07:00 11/06/16 14:36 - 11/10/16 06:11 Intake Total 113 ml 1254 ml 300 ml 6721 ml Output Total 400 ml 1500 ml Balance 113 ml 854 ml 300 ml 5221 ml Intake Oral 940 ml 300 ml 3270 ml IV Total 113 ml 314 ml 3451 ml Output Urine Total 400 ml 1500 ml # Voids 1 3 10 # Bowel Movements 1 1 4 Exam NAD, comfortably laying down on the bed no JVD, MMM, no LAD RRR, nl s1, s2 no mrg CTAB, no w,c S,ND,NT,normoactive BS+ warm, no edema, pulses 2/2 Neuro:PERRLA, speech fluent, but not coherent, AAOx1, CN2-12grossly intact no meningismus IVs and Medications Medications Reviewed: Medications were reviewed in detail Lab and Diagnostics Result Diagram: 11/09/16 0700 11/09/16 0700 X-Rays, CTs and MRIs PROCEDURE: CT BRAIN WITHOUT CONTRAST ([id number]) INDICATIONS: confusion, recent fall TECHNIQUE: Noncontrast 4.5 mm thick angled axial sections acquired from the foramen magnum to the vertex, with coronal reformats. COMPARISON: [facility], CT, CT BRAIN WO CON, 11/05/2016, 18:26. FINDINGS: Image quality: Excellent. CSF spaces: Basal cisterns are patent. No extra-axial fluid collections. The ventricles are symmetric in size and shape. Brain: No intracranial bleeds. There is fairly diffuse cerebral white matter edema bilaterally without shift of midline. No evidence for any herniation is seen.. There is cerebral volume loss for age, with resultant ventricular and sulcal prominence. There are periventricular and deep white matter chronic small vessel ischemic changes. There is intracranial internal carotid artery atherosclerosis. Skull and face: Calvarium and visualized facial bones appear intact, without suspicious lesions. Sinuses: Visualized sinuses and mastoids are clear. IMPRESSION: Diffuse white matter edema unchanged since the previous day CT scan. Dictated by: Michael Gonzalez M.D. on 11/06/2016 at 14:52 Approved by: Michael Gonzalez M.D. on 11/06/2016 at 15:08 Assessment & Plan acute, active acute encephalopathy, POA, probable ?seizure with postictal given unwitnessed episode, likely due to newly found WM lesions based on MRI of brain, also showed previously known frontal meningioma ddx: primary/metatstatic brain tumor infection, PML-although very unlikely given HIV neg, no episode on telemetry observed, TTE showed mild/moderate . -MS seemed wax and wane, no focal deficit noted, but no improvement, rather slightly altered today. Given collateral info from PCP, MRI findings, this more suggestive of chronic progressive dz, -appreciate neurology, ID input, continue acyclovir for now, consider prophylatic AED. -LP so for negative for viral, bacterial etiology, plan to continue acylovir and repeat LP in 3-5days, likely next Saturday to repeat CSF viral PCR. especially Herpes per -telemetry -PT/OT, advance diet as tolerate -initially gentle hydration 100cc/hr, stopped 11/08 HTN, POA, [id number] 11/09, likely home meds being held, unlikely PRES based on radiologic findings, discussed with . -BP better controlled today, no BENDER/dizziness. -continue home metoprolol SR, losartan, -labetalol prn added for SBP>180s, hold HR<60, use hydralazine if labetalol out of stock chronic, stable hyperthyroidism, resume home meds CKD3, stable hyperparathyroidism, calcium level stable, mild , repeat TTE showed not significant chg dispo:pending, stay through the weekends, likely3-4more days diet:soft dvt ppx:LMWH Full Code, verified with patient, daughter. VTE Mechanical Devices: Intermittant Pneumatic CD Time spent 35min Evelia Goldman MD November 10, 2016 10:52
[2016-11-11] VITALS (10 sets, daily range): BP systolic 132–206; BP diastolic 56–82; PULSE 67–74; RESP 2–20; O2SAT 95–97
[2016-11-11] MEDS: Labetalol 5 mg/mL 4 mL Inj IVPUSH PRN (01:52)
[2016-11-11 06:53] LABS: BASOPHILS % (AUTO) 0.5 % (0-3); EOSINOPHILS % (AUTO) 4.9 % (0-5); MONOCYTES % (AUTO) 10.9 % (4-12); Mean Corpuscular Hemoglobin 30.5 pg (27.0-35.0); Mean Corpuscular Volume 93.2 fL (81-100); NEUTROPHILS % (AUTO) 49.7 % (40-74); Platelet Count 193 bil/L (150-400)
[2016-11-11 07:31] LABS: Magnesium 1.8 mg/dL (1.6-2.6); Phosphorus 3.7 mg/dL (2.5-4.9)
[2016-11-11] MEDS: ACYCLOVIR IV SCH ×2 (07:52→16:32)
[2016-11-11] MEDS: SODIUM CHLORIDE 0.9% IV SCH ×2 (07:52→16:32)
[2016-11-11] MEDS: MeTOProlol XL 25 mg ER24 Tablet PO SCH (07:53)
[2016-11-11] MEDS: 0.9% Sodium Chloride 1,000 ML IV SCH ×2 (09:40→19:05)
--- NOTE | 2016-11-11 15:08 | PCM.PNMED ---
Subjective Date of Service November 11, 2016 Subjective pt is calm but remain confused, oriented to herself, followed very simple commands, denied BENDER, dizziness, Exam Vital Signs Vital Sign - Last Date Time Temp Pulse Resp B/P Pulse Ox O2 Delivery O2 Flow Rate FiO2 11/11/16 14:32 36.7 72 20 132/65 97 Room Air Intake and Output 11/10/16 11/10/16 11/11/16 Cumulative From/Thru 15:00 23:00 07:00 11/06/16 14:36 - 11/11/16 06:29 Intake Total 936 ml 412 ml 8069 ml Output Total 1500 ml Balance 936 ml 412 ml 6569 ml Intake Oral 822 ml 300 ml 4392 ml IV Total 104 ml 112 ml 3667 ml Tube Irrigant 10 ml 10 ml Output Urine Total 1500 ml # Voids 4 3 17 # Bowel Movements 2 6 Exam AD, comfortably laying down on the bed no JVD, MMM, no LAD RRR, nl s1, s2 no mrg CTAB, no w,c S,ND,NT,normoactive BS+ warm, no edema, pulses 2/2 Neuro:PERRLA, speech fluent, but not coherent, AAOx1, CN2-12grossly intact no meningismus motor UE 5/5, BLE 3/5, intact to dull/sharp pain, IVs and Medications Medications Reviewed: Medications were reviewed in detail Lab and Diagnostics Result Diagram: 11/11/16 0640 11/11/16 0640 X-Rays, CTs and MRIs PROCEDURE: CT BRAIN WITHOUT CONTRAST ([id number]) INDICATIONS: confusion, recent fall TECHNIQUE: Noncontrast 4.5 mm thick angled axial sections acquired from the foramen magnum to the vertex, with coronal reformats. COMPARISON: [facility], CT, CT BRAIN WO CON, 11/05/2016, 18:26. FINDINGS: Image quality: Excellent. CSF spaces: Basal cisterns are patent. No extra-axial fluid collections. The ventricles are symmetric in size and shape. Brain: No intracranial bleeds. There is fairly diffuse cerebral white matter edema bilaterally without shift of midline. No evidence for any herniation is seen.. There is cerebral volume loss for age, with resultant ventricular and sulcal prominence. There are periventricular and deep white matter chronic small vessel ischemic changes. There is intracranial internal carotid artery atherosclerosis. Skull and face: Calvarium and visualized facial bones appear intact, without suspicious lesions. Sinuses: Visualized sinuses and mastoids are clear. IMPRESSION: Diffuse white matter edema unchanged since the previous day CT scan. Dictated by: Michael Gonzalez M.D. on 11/06/2016 at 14:52 Approved by: Michael Gonzalez M.D. on 11/06/2016 at 15:08 Assessment & Plan acute, active acute encephalopathy, POA, probable ?seizure with postictal given unwitnessed episode, likely due to newly found WM lesions based on MRI of brain, also showed previously known frontal meningioma ddx: primary/metatstatic brain tumor infection, PML-although very unlikely given HIV neg, no episode on telemetry observed, TTE showed mild/moderate .Given collateral info from PCP, MRI findings, this more suggestive of chronic progressive dz, -MS seemed wax and wane, weakness on LE extremities seems new today although hard to interpret as pt cannot follow commands. -appreciate neurology, ID input, continue acyclovir for now, consider prophylatic AED. -LP so for negative for viral, bacterial etiology, plan to continue acylovir and repeat LP in 3-5days, likely tomorrow to repeat CSF viral PCR. especially Herpes per , ordered LP put in. -telemetry -PT/OT, advance diet as tolerate -initially gentle hydration 100cc/hr, stopped 11/08 -should consider repeat MRI if lower extremities remains to be weak, appreciate input. HTN, POA, [id number] 11/09, likely home meds being held, unlikely PRES based on radiologic findings, discussed with . -BP better controlled today, no BENDER/dizziness. 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 diet:soft dvt ppx:LMWH Full Code, verified with patient, daughter. VTE Mechanical Devices: Intermittant Pneumatic CD Time spent 35min Evelia Goldman MD November 11, 2016 15:08
[2016-11-12] VITALS (10 sets, daily range): BP systolic 135–189; BP diastolic 59–98; PULSE 69–78; RESP 18–22; O2SAT 88–98
[2016-11-12] MEDS: SODIUM CHLORIDE 0.9% IV SCH ×3 (00:33→16:50)
[2016-11-12] MEDS: ACYCLOVIR IV SCH ×3 (00:33→16:50)
[2016-11-12] MEDS: 0.9% Sodium Chloride 1,000 ML IV SCH ×3 (05:05→19:37)
[2016-11-12] MEDS ORDERED: Labetalol 5 mg/mL 20 mL Inj IV ONE (05:40)
[2016-11-12 06:52] LABS: BASOPHILS % (AUTO) 0.3 % (0-3); EOSINOPHILS % (AUTO) 4.7 % (0-5); MONOCYTES % (AUTO) 9.6 % (4-12); Mean Corpuscular Hemoglobin 29.6 pg (27.0-35.0); Mean Corpuscular Volume 94.3 fL (81-100); NEUTROPHILS % (AUTO) 52.3 % (40-74); Platelet Count 201 bil/L (150-400)
[2016-11-12 07:10] LABS: Magnesium 1.9 mg/dL (1.6-2.6); Phosphorus 3.6 mg/dL (2.5-4.9)
[2016-11-12] MEDS: MeTOProlol XL 25 mg ER24 Tablet PO SCH (08:49)
[2016-11-12 13:08] LABS: CSF IgG Index 0.9 (0.0-0.7); IgG, Quant, CSF 22.3 mg/dL (0.0-8.6); IgG, Syn Rate,CSF 52.6 mg/day (-9.9 TO +3.3); IgG/Alb Ratio, CSF 0.22 (0.00-0.25)
--- NOTE | 2016-11-12 15:57 | PCM.HPANE ---
Patient Data Surgeon Admitting Provider:Evelia Goldman MD Attending Provider:Evelia Goldman MD Primary Care Physician:Magdalena Macedo MD Other Provider: Reason for Visit Ams, Lle Cellulitis Ht/WT & BMI Height (Feet): 5 Height (Inches): 8.00 Weight (Kilograms): 106.300 Body Mass Index 35.52 Allergies Coded Allergies: Penicillins (Verified Allergy, Severe, Anaphylaxis, 11/06/16) Past Anesthesia History Anesthesia History: Denies:: Anesthesia Reactions Diabetes History Hx Diabetes?: No MRSA MRSA: No Medications Hypertension Medication: Yes Home Meds Incl Beta Raya: No Reported Medications Olmesartan (Benicar)40 Mg Dutddx61 Mg PO DAILY 11/07/16 Metoprolol Succinate ER 25 Mg Tab.er.24h25 Mg PO DAILY 11/07/16 Levothyroxine 100 Mcg Nmoptc991 Mcg PO DAILY For Thyroid Replacement 11/07/16 Hydrochlorothiazide 25 Mg Jtpacf54 Mg PO DAILY 11/07/16 Fluticasone Propionate (Fluticasone Propionate Nasal)16 Gm Steen.susp2 Steen NS BID PRN For Congestion 11/07/16 Fluoxetine 40 Mg Kxhcauq21 Mg PO DAILY 11/07/16 diphenhydrAMINE HCl (Benadryl)25 Mg Qcsgupp16 Mg PO Q4 PRN allergies 11/07/16 Atorvastatin (Lipitor)80 Mg Frngot77 Mg PO DAILY 11/07/16 History History of ENT Problems?: No HEENT History: Denies:: Cataracts (removed) Dysphagia Glaucoma Sinus Problem Denture Type: None Teeth Condition: Missing Teeth Hx of Heart Problems?: Yes Cardiovascular History: Positive for:: Cardiac Surgery (stents ?) Chest Pain Edema Hypertension Denies:: Congestive Heart Failure Heart Murmur Irregular Heartbeat Pacemaker Thrombophlebitis Hx of Respiratory Problem?: No Respiratory History: Positive for:: Pneumonia Denies:: Asthma Chest Surgery Dyspnea Emphysema Hemoptysis Tuberculosis Hx Neurologic Problems?: Yes Neurological History: Positive for:: Dizziness Denies:: Alzheimer's Disease CVA Dementia Headaches Parkinson's Disease Seizures Hx of GI Problems?: No Hx of Problems?: Yes Genitourinary History: Positive for:: Urinary Tract Infection Denies:: HX of Hemodialysis Kidney Stones HX of Peritoneal Dialysis: No Female Hx: Positive for:: Endometriosis Denies:: Currently Pelvic Inflammatory Problems with Breasts? Hx Musculoskeletal Problems?: No Musculoskeletal History: Denies:: Back Injury Joint Replacement Musculoskeletal Trauma Hx of Psycho/Social Problems?: Yes Psycho Social History: Positive for:: Hx Depression Denies:: Anxiety Bipolar Disorder Suicide Attempt Hx Surgeries?: Yes Other History: Positive for:: Hospitalization Thyroid Disease Denies:: Cancer History Blood Transfusions: Positive for:: Accept Blood Products? Denies:: Blood Transfusions Hx Diabetes: No Hx Alcohol Use: NoHx Substance Use: No Smoking Status: Unknown if Ever Smoker Stop/Bang Treated for Sleep Apnea?: No S-Snoring: Do You Snore Loudly: Yes T-Tired: feel tired, fatigued: No O-Obsered: Observed not breath: No P-Blood Pressure: treated: Yes B- Body Mass Index > 35 kg/m2: Yes A- Age over 50: Yes N- Neck Large Circumference: No G- Gender Male: No RUEL Total Score: 4 Risk Assessment Category Category 1A: Patient has history of documented sleep apnea, and HAS NOT received any narcotic, sedative or anesthesia administration during this stay. Category 1B: Patient has history of documented sleep apnea, and HAS received any narcotic , sedative or anesthesia administration during this stay Category 2: Patient has SUSPECTED Obstructive Sleep Apnea, and HAS received any narcotic , sedative or anesthesia administration during this stay. Category 3: Patient has SUSPECTED Obstructive Sleep Apnea and HAS NOT received narcotic, sedative or anesthesia administration during this stay. Category 4: Outpatient in Procedural Areas with known sleep apnea or who screen positive for High Risk via the STOP/BANG questionnaire. Exam Exam Vital Signs Vital Signs Date Time Temp Pulse Resp B/P Pulse Ox O2 Delivery O2 Flow Rate FiO2 11/12/16 14:06 37.1 76 18 164/66 95 Room Air 11/12/16 10:30 36.7 69 22 160/76 94 Room Air 11/12/16 10:10 70 General Appearance: Other (confused, non-conversant) HEENT/AIRWAY: MP 2 Lungs: Normal Air Movement Heart: Exam Unremarkable Meds/Labs/Diagnostics Admission Meds Current Medications Labetalol HCl (Trandate Inj) 20 mg ONCE ONCE IV Last administered on 11/12/16t 05:50; Start 11/12/16 at 05:40; Stop 11/12/16 at 05:41; Status DC Amlodipine Besylate (Norvasc) 10 mg DAILY PO Last administered on 11/12/16t 08: 49; Start 11/12/16 at 08:30 Labs Test 11/06/16 15:38 11/07/16 03:27 11/07/16 14:55 11/08/16 06:40 Prothrombin Time 10.6sec (8.1-12.5) Prothromb Time International Ratio 0.99ratio Hemoglobin A1c 5.2% (4.8-5.6) Lactic Acid Level 0.9mmol/L (0.4-2.0) Ammonia 40ug/dL (18-53) Triglycerides Level 91mg/dL (0-149) Cholesterol Level 151mg/dL (100-199) LDL Cholesterol, Calculated 78.800mg/dL (0-99) VLDL Cholesterol 18.200mg/dL HDL Cholesterol 54mg/dL (>39) Cholesterol/HDL Ratio 2.80 (0.0-4.4) Vitamin B12 Level 526pg/mL (211-946) Thyroid Stimulating Hormone (TSH) 3.850uIU/mL (0.450-4.500) Urinalysis Comment None HIV (1&2) Ag and Ab, 4th Generation Non reactive (Non Reactive) Carcinoembryonic Antigen 2.2ng/mL (0.0-4.7) Test 11/08/16 12:00 11/12/16 06:20 11/12/16 15:48 CSF Appearance Clear (CLEAR) CSF Color Colorless (COLORLESS) CSF WBC 3/mm3 (0-5) CSF RBC 2/mm3 CSF Mononuclear WBCs % CSF Polynuclear WBCs % CSF Other Cells CSF Glucose 58mg/dL (45-90) CSF Lactic Acid 16mg/dL (10-22) CSF Total Protein 144mg/dL (15-45) CSF Albumin 101mg/dL (11-48) Serum Immunoglobulin G 865mg/dL (700-1600) CSF IgG/Albumin Ratio 0.22 (0.00-0.25) CSF Albumin/Serum Albumin Index 30 (0-8) CSF Immunoglobulin G Index 0.9 (0.0-0.7) CSF Immunoglobulin G Synthesis Rate 52.6mg/day (-9.9 TO +3.3) CSF Myelin Basic Protein 5.6ng/mL (0.0-1.2) CSF Oligoclonal Bands Comment (.) CSF Cryptococcus Antigen Negative (Negative) Immunoglobulin G 22.3mg/dL (0.0-8.6) Cryptococcus Antigen Confirmation (.) White Blood Count 6.4th/mm3 (3.8-10.1) Red Blood Count 3.18mil/mm3 (3.90-5.20) Hemoglobin 9.4g/dL (12.0-15.6) Hematocrit 30.0% (35.0-46.0) Mean Corpuscular Volume 94.3fL (81-100) Mean Corpuscular Hemoglobin 29.6pg (27.0-35.0) Mean Corpuscular Hemoglobin Concent 31.3% (32.0-37.0) Red Cell Distribution Width 12.7% (12.3-15.4) Platelet Count 201bil/L (150-400) Neutrophils (%) (Auto) 52.3% (40-74) Lymphocytes (%) (Auto) 32.9% (14-46) Monocytes (%) (Auto) 9.6% (4-12) Eosinophils (%) (Auto) 4.7% (0-5) Basophils (%) (Auto) 0.3% (0-3) Sodium Level 144mEq/L (134-144) Potassium Level 4.3mEq/L (3.5-5.2) Chloride Level 107mEq/L (97-108) Carbon Dioxide Level 25mmol/L (18-29) Blood Urea Nitrogen 28mg/dL (8-27) Creatinine 1.34mg/dL (0.57-1.00) Estimat Glomerular Filtration Rate 55mL/min (>59) Glucose Level 118mg/dL (60-99) Calcium Level 8.6mg/dL (8.5-10.1) Phosphorus Level 3.6mg/dL (2.5-4.9) Magnesium Level 1.9mg/dL (1.6-2.6) Total Bilirubin 0.4mg/dL (0.0-1.2) Aspartate Amino Transf (AST/SGOT) 29U/L (0-50) Alanine Aminotransferase (ALT/SGPT) 14U/L (0-32) Alkaline Phosphatase 71U/L (25-165) Total Protein 5.6g/dL (6.4-8.4) Albumin 3.3g/dL (3.4-5.0) Procalcitonin 0.16ng/mL (0.00-0.08) Plan Impression Patient chart reviewed, patient interviewed and anesthestic plan with risks, benefits, and alternatives discussed, and informed consent obtained. NPO per Anesth. Guidelines: Yes ASA Physical Status: ASA3 Severe Disease Anesthetic Plan: MAC Bene/Risks/Altern/Consents: Yes (consent from daughter) HP Complete Prior to Induction: Yes Jos Escobar MD November 12, 2016 15:57
[2016-11-12 16:06] LABS: APPEARANCE,URINE CLEAR (CLEAR,HAZY); COLOR,URINE STRAW (YELLOW); OCCULT BLOOD,URINE SMALL (NEGATIVE); PH,URINE 6.5 (5.0-8.0); UROBILINOGEN,URINE NORMAL (NORMAL)
--- NOTE | 2016-11-12 16:51 | PCM.ANEP1 ---
Post Anesthesia Phase 1 PACU Phase 1 Assessment Vital Signs Vital Signs Date Time Temp Pulse Resp B/P Pulse Ox O2 Delivery O2 Flow Rate FiO2 11/12/16 14:06 37.1 76 18 164/66 95 Room Air 11/12/16 10:30 36.7 69 22 160/76 94 Room Air 11/12/16 10:10 70 Anesthetic Administered: MAC Level of Alertness: Sleepy, easy to arouse ALDANA's with Equal Strength: Yes Pain: No Nausea or Vomiting: No Oxygen Delivery: Nasal Cannula Lungs: Normal Air Movement Dermatome Level: Full Sensation Complications: No Follow up Care: No Jos Escobar MD November 12, 2016 16:51
--- NOTE | 2016-11-12 17:43 | DRSVH ---
PROCEDURE: X-RAY LUMBAR PUNCTURE ([id number]) INDICATIONS: encephalitis follow up TECHNIQUE: The indications, alternatives, benefits, risks, and complications were explained to the patient. Cecelia groves informed consent was obtained and placed in the chart. The patient was placed in a prone positi on on the fluoroscopy table, and a level was chosen for percutaneous access under fluoroscopic guidan ce. The site was prepped and draped in a sterile fashion. After local anaesthetic, a spinal needle was then used to enter the intrathecal space, with return of cerebrospinal fluid. Sedation was admin istered by the department of anesthesia. After obtaining sufficient fluid, the needle was then withdrawn, and a bandage applied to the punctur e site. FINDINGS: Puncture level: L3 Needle: Spinal needle. Opening pressure: Not requested. CSF volume and description: Clear, 14 cc Medications: 1% lidocaine for anaesthesia. Complications: None Laboratories: As ordered by referring clinician. IMPRESSION: Successful fluoroscopically guided lumbar puncture. Dictated by: Lakisha Rasheed M.D. on 11/12/2016 at 17:41 Approved by: Lakisha Rasheed M.D. on 11/12/2016 at 17:42
[2016-11-12 18:37] LABS: APPEARANCE,CSF CLEAR (CLEAR); COLOR,CSF COLORLESS (COLORLESS); WHITE BLOOD CELL,CSF 1 /mm3 (0-5)
--- NOTE | 2016-11-12 20:04 | DRSVH ---
PROCEDURE: MRI BRAIN WITHOUT CONTRAST ([id number]) INDICATIONS: Altered mental status TECHNIQUE: Non-contrast axial T1 spin echo, axial T2 fast spin echo, sagittal and axial FLAIR, coronal T2 fast s pin echo, axial gradient echo, axial diffusion and ADC through the brain. COMPARISON: [facility], MR, MR BRAIN W&WO CON, 11/07/2016, 11:08. FINDINGS: Image quality: Prominent motion was present throughout the examination. CSF spaces: Ventricles appear symmetric in size and shape. Basal cisterns are patent. No extra-axi al fluid collections. Brain: No intracranial bleeds or mass effects. There is cerebral volume loss for age. There are pe riventricular and deep white matter chronic small vessel ischemic changes. Brainstem appears normal. No chronic ischemic insults. Normal intravascular flow voids are present. The previous appearance of bifrontal as well as bilateral parietal and temporal, left greater than right though site of hype rintense T2/FLAIR intensity is relatively unchanged compared to 11/07/16. Areas demonstrate hypointense diffusion signal with relatively hyperintense ADC signal. Areas of fine detail evaluation are partia lly obscured throughout the exam secondary to significant patient motion. Skull and face: Calvarial bone marrow is normal in signal. Orbits are normal. Sinuses: Sinuses and mastoids are clear. IMPRESSION: 1. Significant motion throughout the examination. 2. Unchanged appearance of hyperintense signal bilaterally within the cerebral hemispheres. Findings can be seen with PML, demyelinating disease, encephalitis/ADEM and PRES. Dictated by: Lakisha Rasheed M.D. on 11/12/2016 at 19:46 Approved by: Lakisha Rasheed M.D. on 11/12/2016 at 20:03
[2016-11-12 20:07] LABS: CMV PCR Negative (Negative)
--- NOTE | 2016-11-12 20:12 | PCM.PNMED ---
Subjective Date of Service November 12, 2016 Subjective Patient was seen and examined at bedside today. Patient's daughter was present during the exam. The patient is still encephalopathic with minimal response to questions. Overnight events: None Exam Vital Signs Vital Sign - Last Date Time Temp Pulse Resp B/P Pulse Ox O2 Delivery O2 Flow Rate FiO2 11/12/16 17:36 36.8 72 18 135/59 98 Nasal Cannula 3.00 Intake and Output 11/11/16 11/11/16 11/12/16 Cumulative From/Thru 15:00 23:00 07:00 11/06/16 14:36 - 11/12/16 03:00 Intake Total 1530 ml 9599 ml Output Total 689 ml 745 ml 2934 ml Balance 841 ml -745 ml 6665 ml Intake Oral 1530 ml 5922 ml IV Total 3667 ml Tube Irrigant 10 ml Output Urine Total 689 ml 745 ml 2934 ml # Voids 9 26 # Bowel Movements 1 7 Exam Physical Exam: GEN: Patient was awake, encephalopathic, minimally responsive to questions HEENT: Pupils equal round and reactive to light, extraocular eye muscles intact , Neck soft supple, trachea midline, nomocephalic/atraumatic CV: +S1/S2, regular rate and rhythm, systolic murmurs auscultated Respiratory: CTAB, no wheezes, rales, rhonchi GI: +bowel sounds x4, soft, compressible, nontender to palpation EXT: no clubbing, cyanosis, edema Psych: mood and affect were appropriate IVs and Medications Medications Reviewed: Medications were reviewed in detail Lab and Diagnostics Result Diagram: 11/12/16 0620 11/12/16 0620 X-Rays, CTs and MRIs PROCEDURE: CT BRAIN WITHOUT CONTRAST ([id number]) INDICATIONS: confusion, recent fall TECHNIQUE: Noncontrast 4.5 mm thick angled axial sections acquired from the foramen magnum to the vertex, with coronal reformats. COMPARISON: [facility], CT, CT BRAIN WO CON, 11/05/2016, 18:26. FINDINGS: Image quality: Excellent. CSF spaces: Basal cisterns are patent. No extra-axial fluid collections. The ventricles are symmetric in size and shape. Brain: No intracranial bleeds. There is fairly diffuse cerebral white matter edema bilaterally without shift of midline. No evidence for any herniation is seen.. There is cerebral volume loss for age, with resultant ventricular and sulcal prominence. There are periventricular and deep white matter chronic small vessel ischemic changes. There is intracranial internal carotid artery atherosclerosis. Skull and face: Calvarium and visualized facial bones appear intact, without suspicious lesions. Sinuses: Visualized sinuses and mastoids are clear. IMPRESSION: Diffuse white matter edema unchanged since the previous day CT scan. Dictated by: Michael Gonzalez M.D. on 11/06/2016 at 14:52 Approved by: Michael Gonzalez M.D. on 11/06/2016 at 15:08 Assessment & Plan 76-year-old female with acute encephalopathy Acute encephalopathy -PML vs PRES vs ?seizure with postictal phase vs previously known frontal meningioma ddx: primary/metatstatic brain tumor infection, PML-although very unlikely given HIV neg, no episode on telemetry observed - TTE showed mild/moderate .Given collateral info from PCP - MRI findings are more suggestive of chronic progressive dz, - CSF from lumbar puncture on 11/12/16 and 11/08/16 has come back negative - Infectious disease has ruled out herpes encephalopathy acyclovir has been discontinued at this time treating for possible Bartonella henselae as the patient does have a cat (as per recommendations by infectious disease); however this is unlikely - Repeat MRI (11/12/16) is unchanged showing appearances of hyperintense signal bilaterally within the cerebral hemispheres (rule out PML, demyelinating disease , cellulitis/ADEM and PRES) - Neurology following (Dr. Emerson) - Infectious disease following (Dr. Young) HTN, POA, [id number] 11/09, likely home meds being held, unlikely PRES based on radiologic findings, discussed with . - BP better controlled today -Patient unable to swallow medications safely at this time all home meds have been held -Currently treating the patient with IV labetalol Mild DANA on CKD3 -Creatinine trending down from 1.34 to 1.12 with normal saline -Continue normal saline at 100 mL an hour Hyperthyroidism -Hold patient's home dose of 100 g by mouth daily as the patient has become obtunded and is an aspiration risk - Change to 50 g IV today Hyperparathyroidism -Calcium level currently stable Mild aortic stenosis -Repeat TTE showed no significant changes diet:soft dvt ppx:LMWH Full Code, verified with patient, daughter. Disposition: At this time the patient had a lumbar puncture performed by anesthesiology today will follow-up with CSF results. Both Dr. emerson and Dr. Young feel that the patient should first be ruled out for PRES vs herpetic encephalopathy. Once this is determined we will have a better understanding of were to transfer the patient for how to treat the patient. If these tests come back negative the patient will most likely need to be transferred to the [facility] or [facility] for possible brain biopsy. This case was discussed extensively with Dr. emerson (neurology). VTE Mechanical Devices: Venous Foot Pump Resuscitation Status: CPR: Attempt Resuscitation Zoya Roper DO November 12, 2016 20:12
[2016-11-12] MEDS ORDERED: SODIUM CHLORIDE 0.9% IV SCH (20:25)
[2016-11-12] MEDS ORDERED: RIFAMPIN IV SCH (20:25)
--- NOTE | 2016-11-12 20:48 | PROG NOTE ---
[address] [address] PROGRESS NOTE PATIENT: JUAN DAVID AGUIRRE : 1940 MR#: [id number] ADMIT: 11/06/2016 JOB ID: [id number] CORRECTED REPORT: DATE: 11/12/2016 REASON FOR FOLLOWUP: Progressive encephalitis. INTERVAL HISTORY: Over the weekend, the patient has declined considerably. Recall that this is this is the 76-year-old woman admitted with mental status changes occurring over a week or so prior to admission late last week. 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 The patient was evaluated by myself from ID as well as Dr. Stevenson from Neurology. We produced a differential diagnosis which included viral and noninfectious causes. Also, considered was the possibility of as well as lymphoma and other noninfectious processes. The patient has been treated with high-dose acyclovir over the weekend while we await another lumbar puncture and additional imaging. Unfortunately, the patient is now much worse than when I last saw her on Saturday, November 09. She now is not producing any speech whereas before she was producing confused and mumbling speech. She moves her extremities in a purposeless fashion on occasion and otherwise does not move at all or follow any commands or interact. Her daughters who are with her in the room have been throughout the weekend are extremely concerned about her progressive deterioration. PHYSICAL EXAMINATION: Reveals a woman lying in bed, moving somewhat randomly though occasionally raising her hand to her face. She does not respond to voice and does not interact in any meaningful way. She has been afebrile since her admission which is now almost exactly one week ago. Her current temperature 36.8, and that is consistent with all prior temperatures, pulse 72, respiratory rate 18, blood pressure 135/59, she is on 3 L of oxygen saturating 98%. Examination of the eyes reveals no scleral icterus or conjunctivitis. I cannot assess her extraocular movements. Oral cavity without herpetic lesions or obvious abnormalities. Lungs fairly clear. Cardiac tones regular rate and rhythm. Abdomen benign. The patient does push away when one stimulates her feet and so she retains motor strength but little beyond that. No skin rashes noted. LABORATORIES: Include completely normal white count throughout her admission, now 6400 with normal diff. Creatinine is 1.34. LFTs are normal. Albumin 3.3. Procalcitonin 0.16. Urinalysis 0-5 white cells. IgG is pending. Cerebrospinal fluid was repeated today. It has 1 white cell, 2 red cells, normal glucose 61, protein moderately elevated at 121 but that is a little better than last week when it was 144. A variety of specialized studies are pending on this including DARRYL virus PCR, CMV PCR, EBV PCR and NMVA receptor IgG antibody. Cultures of spinal fluid were apparently not done on the initial cerebrospinal fluid though the PCR studies were entirely negative by the SMRxT technology. A repeat CSF was just done and once again were completely negative in terms of the BioFire PCR studies including HSV, VZV and HH B6. Cryptococcal antigen is also negative. A repeat MRI of the brain was just done without contrast, and I am looking at the films and they appear to show a similar pattern to that which was seen back on November 07, but somewhat worse. I discussed these images over the phone with Dr. Stevenson in Neurology who also looked at them and felt they were looking worse. IMPRESSION: This is a woman with a progressive encephalitis picture who is steadily declining in spite of high-dose IV acyclovir. We have two sets of BioFire PCR studies for November 08 and today November 12 which are completely negative. Her cerebrospinal fluid does not show any pleocytosis nor does it show any low glucose but there is a moderate degree of protein elevation. 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 In the absence of another diagnosis, I think this is likely to be the diagnosis. I see no evidence for a standard bacterial meningitis, of course, as she has no white cells in her spinal fluid and negative PCRs. Likewise, I see no evidence for typical herpetic viral encephalitis such as varicella zoster virus (VZV) or herpes simplex virus. Acyclovir may actually contribute to mental status changes in the elderly when given at high doses such as this and given the absence of any evidence of herpes encephalitis I am inclined to stop it at this point. RECOMMENDATIONS: 1. Will stop the IV acyclovir. 2. I agree with Dr. Stevenson with whom I discussed this case on the phone this evening in that I think the patient should be transferred for a brain biopsy. We really do not know if this is an autoimmune process, rapidly progressive lymphoma or atypical viral or other infection. At this point, I think I can think of no way to reverse her downhill clinical course without a diagnosis and support the idea of transfer for brain biopsy. 3. Note that a considerable period of time was spent explaining the situation to the patient's two daughters who are understandably distraught. ADDITIONAL INFORMATION: REASON FOR ADDENDUM: In speaking to the patient's daughters in greater detail, they note that even though the patient lives with her elderly in a very confined area in [place] they do have a cat which occasionally scratches people. This cat is elderly and unlikely to have Bartonella, but in the absence of any diagnosis for this patient which seems reversible, I think a remote consideration of Bartonella is perhaps reasonable. In accordance with this idea, will go ahead and get Bartonella titers and consider Bartonella PCR on the spinal fluid if we can find a reference lab where we could reasonably send that. In addition, I will go ahead and start the patient on a combination of rifampin and doxycycline which probably constitutes the best therapy for this very rare cause of encephalitis. Addenda added by YANDY 11/13/16 at 7:00am JOSEPHINE
[2016-11-12] MEDS: Doxycycline Inj 100 MG in Dextrose 5% Minibag Plus 100 ML IV SCH (21:20)
[2016-11-13] VITALS (11 sets, daily range): BP systolic 173–205; BP diastolic 66–86; PULSE 69–79; RESP 23–26; O2SAT 95–97
[2016-11-13] MEDS ORDERED: RIFAMPIN IV SCH (00:30)
[2016-11-13] MEDS ORDERED: SODIUM CHLORIDE 0.9% IV SCH (00:30)
[2016-11-13] MEDS: Labetalol 5 mg/mL 4 mL Inj IVPUSH PRN ×2 (00:58→13:37)
[2016-11-13] MEDS: hydrALAZINE 20 mg/mL Inj IV PRN ×2 (03:24→14:29)
[2016-11-13] MEDS ORDERED: Nitroglycerin 2% 1 Gm Ointment TOPICAL ONE (04:10)
[2016-11-13 07:13] LABS: Mean Corpuscular Hemoglobin 29.7 pg (27.0-35.0); Mean Corpuscular Volume 93.8 fL (81-100)
--- NOTE | 2016-11-13 07:54 | PROG NOTE ---
[address] [address] PROGRESS NOTE PATIENT: JUAN DAVID AGUIRRE : 1940 MR#: [id number] ADMIT: 11/06/2016 JOB ID: [id number] DATE OF SERVICE: 11/12/2016 SUBJECTIVE: There has been a change in mental status. The patient appears lethargic and is now not following commands. Reviewed repeat magnetic resonance imaging study of the brain. No evidence of acute ischemic insult. There continues to be the appearance of bifrontal and bilateral parietal and temporal left greater than right hyperintense T2-2 FLAIR signal, hypointense diffusion signal with relatively hyperintense ADC signal. It was limited significantly by patient motion. Reviewed MRI study in detail. Again, this magnetic resonance imaging study is nonspecific and may be seen in a wide variety of different clinical conditions including progressive multifocal leukoencephalopathy. Demyelinating diseases such as acute demyelinating encephalomyelitis may also be seen in the setting of encephalitis and may also represent atypical posterior reversible encephalopathy syndrome. Her change in mental status may also be secondary to an underlying toxic metabolic encephalopathy such as seen secondary to infections usually urinary tract or respiratory such as pneumonia. I reviewed her laboratory studies. A urinalysis was performed today. Small occult blood, trace leukocyte esterase, IgG 22.8, clear and colorless, 1 WBC, 2 RBCs, glucose was 61, total protein 121. Rest of tests are still pending. Sodium 144, potassium 4.3, chloride 107, bicarb was 25, BUN was 28, creatinine was 1.34, glucose 118, total protein 5.6, albumin 3.3, procalcitonin 0.16. WBC of 6.4, hemoglobin 9.4, hematocrit 30.0, and platelets of 201. Negative for CMV, negative for EBV, an MVA is pending, DARRYL virus is pending. PHYSICAL EXAMINATION: Temperature 36.8, pulse 72, respiratory rate of 18, blood pressure 135/59, pulse oximetry 98%. Mental status: She is awake, alert, oriented x1. She does not voluntarily open her eyes. She does not follow any complex commands. Her daughters report that overnight she had a urinary catheter placed with evidence of urinary retention. They have noticed a significant change overnight in her mental status. She is a well-developed, well-nourished woman, with altered mental status. Two daughters at the bedside. Head: Normocephalic, atraumatic. Neck is supple. No carotid bruits auscultated. Negative Kernig. Negative Brudzinski. They do report an intermittent tremor, however, I do not appreciate this on examination at this time. She withdraws to noxious stimuli throughout. She moves all four extremities spontaneously. Pupils are equal, round, reactive to light. She blinks to threat. Face appears symmetrical. Tongue appears midline gait was deferred. IMPRESSION: Acute change in mental status. There is a broad differential diagnosis for her acute change in mental status, including toxic metabolic encephalopathy versus other etiology such as infectious versus inflammatory. She has had two lumbar punctures which did demonstrate elevated protein levels, however, based on the repeat lumbar puncture an infectious etiology appears less likely. My concern is whether or not this represents a form of PML versus an underlying PRES syndrome versus an autoimmune phenomenon. In order to exclude the possibility of PML, I do recommend an evaluation by Neurosurgery for possible brain biopsy. In the differential diagnosis as noted above also is PRES syndrome, however, this is usually seen in the setting of electrolyte disturbances or disorders resulting in cerebral autoregulation such as malignant hypertension and hypertensive encephalopathy. In the differential as well is an autoimmune phenomenon. My concern is that if we would empirically start treatment with steroids there is a possibility that if this is encephalitis this may exacerbate this underlying process. If an infectious etiology has been excluded, consider empirical steroids. In light of this, I do recommend transfer to [facility]. Given her clinical history, it is unlikely that the episodes of tremor represent an underlying ictal etiology. They are likely primary care sales representative of essential tremor. Based on the clinical history and examination though, I do recommend obtaining a spot EEG, especially to exclude any other etiology of toxic metabolic encephalopathy. It is very unlikely that her change in mental status is secondary to nonconvulsive status epilepticus, however, I do recommend obtaining an electroencephalogram. If we are concerned about the possibility of inflammatory PML or an autoimmune process such as a vasculitis (MRA was unrevealing) if an infectious etiology is excluded , consider an empirical trial of intravenous methylprednisolone 1 g daily for five days followed by a slow glucocorticoid taper. Discussed with Dr. Young and reviewed MRI with Dr. Rasheed. Please feel free to contact me with any questions or concerns. JOSEPHINE
--- NOTE | 2016-11-13 08:09 | PATH ---
SURGICAL PATHOLOGY Attending Physician:Michael Gonzalez M.D. CASE STATUS: Signed Out PATIENT NAME: Kayla Huber PID: [id number] : 1940 DATE COLLECTED:11/08/2016 00:00 SPECIMEN: Cerebrospinal Fluid CLINICAL HISTORY: Cerebrospinal Fluid ICD-10 code not given FINAL DIAGNOSIS: 1.CEREBROSPINAL FLUID CYTOLOGY SPECIMEN (CYTOSPIN): NEGATIVE FOR MALIGNANT CELLS. CELLS PRESENT INCLUDE LYMPHOCYTES AND SOME DEGENERATING LEUKOCYTES. Case reviewed by Dr Brent Roberts who agrees with the diagnosis. ICD10 CODE F03.90 GROSS DESCRIPTION: Received fresh on 11/09/2016 is approximately 2 cc of clear colorless fluid. Prepared is one Cytospin slide. Vo ICD-9 CODES: CPT CODES: 1: 95599 Electronically Signed Out Flako Cat MD [facility] Pathology [facility] [address], [place] [address] Technical component performed at [facility], [facility] [address], [place], [address]
[2016-11-13] MEDS: MeTOProlol XL 25 mg ER24 Tablet PO SCH (08:30)
[2016-11-13] MEDS: Doxycycline Inj 100 MG in Dextrose 5% Minibag Plus 100 ML IV SCH (11:35)
[2016-11-13] MEDS ORDERED: HYDR25TA4 PO (12:46)
[2016-11-13] MEDS ORDERED: METO25TA6 PO (12:47)
--- NOTE | 2016-11-13 12:50 | PCM.DIMED ---
Discharge Instructions Date of Service November 13, 2016 Dates of Hospitalization November 06, 2016 at 18:05 Discharge Diagnosis Discharge Diagnosis Acute encephalopathy ? PML versus PRES Hypertension Mild AK I on CK 83 Hyperthyroidism Hyperparathyroidism Mild aortic stenosis Zoya Roper DO November 13, 2016 12:50
[2016-11-13] MEDS: 0.9% Sodium Chloride 1,000 ML IV SCH (12:55)
[2016-11-13] MEDS ORDERED: Levothyroxine 100 mCg/5 mL Inj IV ONE (13:15)
--- NOTE | 2016-11-13 13:34 | PCM.DC.MED ---
Discharge Summary Date of Service November 13, 2016 Dates of Hospitalization Date of Hospital Admission November 06, 2016 at 18:05 Date of Discharge: November 13, 2016 Providers: Admitting Physician: Evelia Goldman MD Primary Care Physician: Magdalena Macedo MD Attending Physician: Evelia Goldman MD Diagnosis at Time of Discharge Diagnosis at Time of Discharge Acute encephalopathy ? PML versus PRES Hypertension Mild AK I on CK 83 Hyperthyroidism Hyperparathyroidism Mild aortic stenosis Procedures XRay, CTs & MRIs PROCEDURE: CT BRAIN WITHOUT CONTRAST ([id number]) INDICATIONS: confusion, recent fall TECHNIQUE: Noncontrast 4.5 mm thick angled axial sections acquired from the foramen magnum to the vertex, with coronal reformats. COMPARISON: [facility], CT, CT BRAIN WO CON, 11/05/2016, 18:26. FINDINGS: Image quality: Excellent. CSF spaces: Basal cisterns are patent. No extra-axial fluid collections. The ventricles are symmetric in size and shape. Brain: No intracranial bleeds. There is fairly diffuse cerebral white matter edema bilaterally without shift of midline. No evidence for any herniation is seen.. There is cerebral volume loss for age, with resultant ventricular and sulcal prominence. There are periventricular and deep white matter chronic small vessel ischemic changes. There is intracranial internal carotid artery atherosclerosis. Skull and face: Calvarium and visualized facial bones appear intact, without suspicious lesions. Sinuses: Visualized sinuses and mastoids are clear. IMPRESSION: Diffuse white matter edema unchanged since the previous day CT scan. Dictated by: Michael Gonzalez M.D. on 11/06/2016 at 14:52 Approved by: Michael Gonzalez M.D. on 11/06/2016 at 15:08 Brief History 76-year-old female with mild dementia, hypertension, hyperthyroidism, remote hx of NCL82mmk ago, community dwelling functional lady initially presented yesterday after being found down by her . Per pt's , the pt was sleeping normally at 17:00. When he checked on her again thirty minutes later, she had fallen on the floor with her head between the bed and a dresser. When the pt was found, she was responsive and knew who her was. She complained of neck pain at that time, estimated last normal was 30min earlier, pt had CTH, cervical spine CT, which didn't show any acute findings. As per record, pt was communicative upon d/c. Since [facility] [place] [facility], daughter stayed with the patient, patient had been very somnolent, responding, barely open her eyes. Daughter called and primary doctor, asked to come to ED again. In ED, VS 149/101, 66, 21, afebrile, 98% on RA, repeat CTH unchanged, venous duplex neg. received 500cc bolus During interview, pt already made improvement per family, able to communicate, mildly drowsy and slow to response, denied any pain, BENDER, dizziness, focal weakness, knows she is the hospital but doesn't know the reason, recognized all of the family members. Hospital Course 76-year-old female with acute encephalopathy Acute encephalopathy -PML vs PRES vs ?seizure with postictal phase vs previously known frontal meningioma ddx: primary/metatstatic brain tumor infection, PML-although very unlikely given HIV neg, no episode on telemetry observed - TTE showed mild/moderate .Given collateral info from PCP - MRI findings are more suggestive of chronic progressive dz, - CSF from lumbar puncture on 11/12/16 and 11/08/16 has come back negative - Infectious disease has ruled out herpes encephalopathy acyclovir has been discontinued at this time treating for possible Bartonella henselae as the patient does have a cat (as per recommendations by infectious disease); however this is unlikely - Repeat MRI (11/12/16) is unchanged showing appearances of hyperintense signal bilaterally within the cerebral hemispheres (rule out PML, demyelinating disease , cellulitis/ADEM and PRES) - Neurology following (Dr. Stevenson) - Infectious disease following (Dr. Young) HTN, POA, [id number] 11/09, likely home meds being held, unlikely PRES based on radiologic findings, discussed with . - BP better controlled today -Patient unable to swallow medications safely at this time all home meds have been held -Currently treating the patient with IV labetalol Mild DANA on CKD3 -Creatinine trending down from 1.34 to 1.12 with normal saline -Continue normal saline at 100 mL an hour Hyperthyroidism -Hold patient's home dose of 100 g by mouth daily as the patient has become obtunded and is an aspiration risk - Change to 50 g IV today Hyperparathyroidism -Calcium level currently stable Mild aortic stenosis -Repeat TTE showed no significant changes diet: Nothing by mouth this patient is currently a aspiration risk dvt ppx:LMWH Full Code, verified with patient, daughter. Disposition: At this time it is the consensus of both infectious disease (Dr. Young), neurology (Dr. Stevenson), and myself that the patient is not progressing. At this time it is felt that all of our resources have been exhausted and that the patient should be transferred down to the [facility]. Exam Vital Signs (Last) Date Time Temp Pulse Resp B/P Pulse Ox O2 Delivery O2 Flow Rate FiO2 11/13/16 11:36 Supplement Oxygen 11/13/16 11:04 78 11/13/16 10:50 36.3 24 178/82 96 2.00 Exam Physical Exam: GEN: Patient was obtunded, only open her eyes slightly in response to her name, occasionally would shake her head yes or no to a question HEENT: Pupils equal round and reactive to light, extraocular eye muscles intact , Neck soft supple, trachea midline, nomocephalic/atraumatic CV: +S1/S2, regular rate and rhythm, systolic murmurs auscultated Respiratory: CTAB, positive wheezes, no rales, no rhonchi GI: +bowel sounds x4, soft, compressible, nontender to palpation, morbidly obese EXT: no clubbing, cyanosis, edema Neuro: Cranial nerves II-XII grossly intact Psych: mood and affect were appropriate Test 11/06/16 15:38 11/07/16 14:55 11/08/16 06:40 11/08/16 12:00 Prothrombin Time 10.6sec (8.1-12.5) Prothromb Time International Ratio 0.99ratio Hemoglobin A1c 5.2% (4.8-5.6) Lactic Acid Level 0.9mmol/L (0.4-2.0) Ammonia 40ug/dL (18-53) Triglycerides Level 91mg/dL (0-149) Cholesterol Level 151mg/dL (100-199) LDL Cholesterol, Calculated 78.800mg/dL (0-99) VLDL Cholesterol 18.200mg/dL HDL Cholesterol 54mg/dL (>39) Cholesterol/HDL Ratio 2.80 (0.0-4.4) Vitamin B12 Level 526pg/mL (211-946) Thyroid Stimulating Hormone (TSH) 3.850uIU/mL (0.450-4.500) HIV (1&2) Ag and Ab, 4th Generation Non reactive (Non Reactive) Carcinoembryonic Antigen 2.2ng/mL (0.0-4.7) CSF Lactic Acid 16mg/dL (10-22) CSF Myelin Basic Protein 5.6ng/mL (0.0-1.2) CSF Cryptococcus Antigen Negative (Negative) Cryptococcus Antigen Confirmation (.) Cytomegalovirus DNA Qual (PCR) Negative (Negative) Lonnie-De Jesus Virus DNA (PCR) Negative (Negative) Test 11/12/16 06:20 11/12/16 15:48 11/12/16 17:00 11/13/16 07:02 Neutrophils (%) (Auto) 52.3% (40-74) Lymphocytes (%) (Auto) 32.9% (14-46) Monocytes (%) (Auto) 9.6% (4-12) Eosinophils (%) (Auto) 4.7% (0-5) Basophils (%) (Auto) 0.3% (0-3) Phosphorus Level 3.6mg/dL (2.5-4.9) Magnesium Level 1.9mg/dL (1.6-2.6) Procalcitonin 0.16ng/mL (0.00-0.08) Urine Color Straw (YELLOW) Urine Appearance Clear (CLEAR,HAZY) Urine pH 6.5 (5.0-8.0) Urine Specific [place] 1.010 (1.003-1.035) Urine Protein Negativemg/dL (NEG,TRACE) Urine Glucose (UA) Negativemg/dL (NEGATIVE) Urine Ketones Negativemg/dL (NEGATIVE) Urine Occult Blood Small (NEGATIVE) Urine Nitrite Negative (NEGATIVE) Urine Bilirubin Negative (NEGATIVE) Urine Urobilinogen Normalmg/dL (NORMAL) Urine Leukocyte Esterase Trace (NEGATIVE) Urine RBC 0-2/hpf (0-2) Urine WBC 0-5/hpf (0-5) Urine Epithelial Cells None/hpf (NONE-MOD) Urine Crystals None seen (NONE SEEN) Urine Bacteria Few/hpf (NONE-FEW) Urine Hyaline Casts None/lpf (NONE) Urine Granular Casts None seen (NONE SEEN) Urine Waxy Casts None seen (NONE SEEN) Urine Red Blood Cell Casts None seen (NONE SEEN) Urine White Blood Cell Casts None seen (NONE SEEN) Urine Mucus None seen (None Seen) Urine Trichomonas None seen (NONE SEEN) Urine Yeast None (NONE SEEN) Urinalysis Comment None Urine Culture Reflexed Indicated CSF Appearance Clear (CLEAR) CSF Color Colorless (COLORLESS) CSF WBC 1/mm3 (0-5) CSF RBC 2/mm3 CSF Mononuclear WBCs % CSF Polynuclear WBCs % CSF Other Cells CSF Glucose 61mg/dL (45-90) CSF Total Protein 121mg/dL (15-45) White Blood Count 9.1th/mm3 (3.8-10.1) Red Blood Count 3.37mil/mm3 (3.90-5.20) Hemoglobin 10.0g/dL (12.0-15.6) Hematocrit 31.6% (35.0-46.0) Mean Corpuscular Volume 93.8fL (81-100) Mean Corpuscular Hemoglobin 29.7pg (27.0-35.0) Mean Corpuscular Hemoglobin Concent 31.6% (32.0-37.0) Red Cell Distribution Width 12.8% (12.3-15.4) Platelet Count 191bil/L (150-400) Sodium Level 143mEq/L (134-144) Potassium Level 4.2mEq/L (3.5-5.2) Chloride Level 107mEq/L (97-108) Carbon Dioxide Level 23mmol/L (18-29) Blood Urea Nitrogen 24mg/dL (8-27) Creatinine 1.12mg/dL (0.57-1.00) Estimat Glomerular Filtration Rate 68mL/min (>59) Glucose Level 133mg/dL (60-99) Calcium Level 8.6mg/dL (8.5-10.1) Total Bilirubin 1.2mg/dL (0.0-1.2) Aspartate Amino Transf (AST/SGOT) 31U/L (0-50) Alanine Aminotransferase (ALT/SGPT) 17U/L (0-32) Alkaline Phosphatase 77U/L (25-165) Total Protein 5.9g/dL (6.4-8.4) Albumin 3.5g/dL (3.4-5.0) Discharge Medications Discharge Medications Atorvastatin (Lipitor) 80 Mg Tablet 80 MG PO DAILY (Reported) Fluoxetine (Fluoxetine) 40 Mg Capsule 40 MG PO DAILY (Reported) Hydrochlorothiazide (Hydrochlorothiazide) 25 Mg Tablet 25 MG PO DAILY (Reported ) Hydrochlorothiazide (Hydrochlorothiazide) 25 Mg Tablet 50 MG PO DAILY Prescribed by: TESS STAFFORD DO Levothyroxine (Levothyroxine) 100 Mcg Tablet 100 MCG PO DAILY (Reported) Metoprolol Succinate ER (Metoprolol Succinate ER) 25 Mg Tab.er.24h 25 MG PO DAILY (Reported) Metoprolol Tartrate (Metoprolol Tartrate) 25 Mg Tablet 12.5 MG PO BID Prescribed by: TESS STAFFORD DO Olmesartan (Benicar) 40 Mg Tablet 40 MG PO DAILY (Reported) As needed Fluticasone Propionate (Fluticasone Propionate Nasal) 16 Gm Hull.susp 2 SPRAY NS BID PRN PRN For Congestion (Reported) diphenhydrAMINE HCl (Benadryl) 25 Mg Capsule 25 MG PO Q4 PRN PRN allergies ( Reported) Time spent Greater than 1 hour copies to: Magdalena Macedo MD, Precious L DO November 13, 2016 13:34
[2016-11-13] MEDS ORDERED: Propofol 10,000 mCg/mL 20 mL Inj ONE (15:49)
[2016-11-14 14:09] LABS: CSF IgG Index 0.8 (0.0-0.7); IgG, Quant, CSF 16.7 mg/dL (0.0-8.6); IgG, Syn Rate,CSF 35.2 mg/day (-9.9 TO +3.3); IgG/Alb Ratio, CSF 0.19 (0.00-0.25)
== END 2016-11-13 15:50 | disposition short-term general hospital (02) | DRG 71 ==
LOC: SED 14:20 → EDBD 14:20 → OBSVTOIN 18:05 → MPC 18:05
PROVIDERS: ADMIT Internal Medicine; ATTEND Internal Medicine
PROC: 009U3ZX Drainage of Spinal Canal, Percutaneous Approach, Diagnostic (ICD-10-PCS; principal; 2016-11-08)
PROC: 009U3ZX Drainage of Spinal Canal, Percutaneous Approach, Diagnostic (ICD-10-PCS; 2016-11-12)
DX: G93.40 Encephalopathy, unspecified (principal); A81.2 Progressive multifocal leukoencephalopathy; L03.115 Cellulitis of right lower limb; R47.01 Aphasia; N17.9 Acute kidney failure, unspecified; I67.83 Posterior reversible encephalopathy syndrome; F03.90 Unspecified dementia, unspecified severity, without behavioral disturbance, psychotic disturbance, mood disturbance, and anxiety; I25.10 Atherosclerotic heart disease of native coronary artery without angina pectoris; E05.90 Thyrotoxicosis, unspecified without thyrotoxic crisis or storm; I12.9 Hypertensive chronic kidney disease with stage 1 through stage 4 chronic kidney disease, or unspecified chronic kidney disease; N18.3 Chronic kidney disease, stage 3 (moderate)